=== PATIENT | male | born 1940 | race Caucasian/White ===

== ENCOUNTER → 2020-03-02 08:15 | Outpatient (REF) | payer MEDICARE, SELFPAY | LOC: ANHLAB 08:15 | PROVIDERS: PCP Family Medicine; Visit Provider Nurse Practitioner | DX: C44.612 Basal cell carcinoma of skin of right upper limb, including shoulder (principal) | CPT/HCPCS: 88305; 88331 ==

== ENCOUNTER → 2020-09-15 10:53 | Outpatient (REF) | payer MEDICARE, SELFPAY | LOC: ANHLAB 10:53 | PROVIDERS: PCP Family Medicine; Visit Provider Nurse Practitioner | DX: C44.319 Basal cell carcinoma of skin of other parts of face (principal) | CPT/HCPCS: 88305 ==

== ENCOUNTER → 2020-11-16 09:13 | Outpatient (REF) | payer MEDICARE, SELFPAY | LOC: ANHLAB 09:13 | PROVIDERS: PCP Family Medicine; Visit Provider Nurse Practitioner | DX: C44.319 Basal cell carcinoma of skin of other parts of face (principal) | CPT/HCPCS: 88305; 88331 ==

== ENCOUNTER → 2021-02-16 10:34 | Outpatient (CLI) | payer MEDICARE, SELFPAY ==
--- NOTE | ~2021-02-16 | XR_ITS ---
EXAMINATION: XR hand LT min 3V EXAM DATE: 02/16/2021 11:15 INDICATION: Pain in bilateral 1st MP joints. TECHNIQUE: Left hand frontal, lateral and oblique projections obtained and reviewed. Comparison is ma joselyn to prior examination from 02/18/2016. FINDINGS: Left metacarpal bones are unremarkable. There is severe 1st carpometacarpal, moderate josé caphe primary osteoarthritis. Otherwise mild polyarticular and and wrist primary osteoarthritis. Ther e are no bony erosions identified. There are no acute fractures or dislocations identified. There is no subcutaneous gas. The soft tissue is unremarkable. There are no radiopaque foreign bodies. 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 Reviewed, dictated and finalized at location B. 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
--- NOTE | ~2021-02-16 | XR_ITS ---
EXAMINATION: XR hand RT min 3V EXAM DATE: 02/16/2021 11:15 INDICATION: Pain in bilateral 1st MP joints . Rt 4th digit stiffness, wont straighten x 1yr. bilateral 1st digit mcp joint pain x 10 yrs. TECHNIQUE: Right hand frontal, lateral and oblique projections obtained and reviewed. Comparison is m saadia to prior examination from 02/18/2016. FINDINGS: Right metacarpal bones are unremarkable. There is severe 1st carpometacarpal joint primar y osteoarthritis. Otherwise mild to moderate polyarticular metacarpophalangeal and interphalangeal p rimary osteoarthritis. There are no acute fractures or dislocations identified. There is no subcutan eous gas. The soft tissue is unremarkable. There are no radiopaque foreign bodies. IMPRESSION: Right hand polyarticular arthritis, severe at the 1st carpometacarpal joint. Reviewed, dictated and finalized at location B. IMPRESSION: Right hand polyarticular arthritis, severe at the 1st carpometacarp al joint.
== END ==
PROVIDERS: Visit Provider Plastic Surgery
DX: M19.041 Primary osteoarthritis, right hand (principal); M19.042 Primary osteoarthritis, left hand
CPT/HCPCS: 73130

== ENCOUNTER → 2022-03-09 13:07 | Outpatient (CLI) | payer MEDICARE, SELFPAY ==
--- NOTE | ~2022-03-09 | MR_ITS ---
EXAMINATION: MR hip LT wo con DATE: 03/09/2022 14:17 INDICATION: Left hip pain TECHNIQUE: Magnetic resonance imaging (MRI) of the left hip was performed without intravenous contra st. Sequences included full-field axial PD-weighted FS FSE and T1-weighted FSE, coronal of the pelvis with PD-weighted FS FSE, small field of view of the left hip with axial PD-weighted FS FSE, sagitta l PD-weighted FS FSE and coronal PD weighted FS FSE. Additional radial T1-weighted FGR oriented ortho gonal to the acetabular rim were obtained for evaluation of the labrum. COMPARISON: Left hip radiographs dated 12/30/2021 FINDINGS: Bones/labrum/cartilage: Alignment is normal. No fracture, avascular necrosis or pathologic marrow replacing process. Mild le ft hip osteoarthritis with mild nonuniform joint space narrowing related to partial thickness cartila ge loss most prominent posteriorly without degenerative subchondral changes. Diffuse degenerative tea ring of the left acetabular labrum. Large para labral cyst extending approximately 7 cm AP along the rim of the left acetabulum along the deep margin of the reflected head of the proximal left rectus fe rachana tendon. The cyst measures up to 6 x 9 mm in maximal orthogonal dimensions. Severe lumbosacral s pondylosis. Fluid: Symmetric physiologic amount of fluid within both hip joints. Soft tissues: Normal and symmetric muscle bulk and signal in the pelvis and visualized proximal thighs. The iliopso as, gluteal and proximal hamstring tendons are normal. Prostatomegaly measuring 5.2 x 4.6 x 4.4 cm. T here is 4.5 x 3.6 x 3.7 cm exophytic mass arising from prostate which projects into the lumen at the base of the bladder. Mildly trabeculated mucosal surface to the bladder consistent with likely chroni c outlet obstruction. Limited evaluation of visceral organs of the pelvis is otherwise unremarkable. No pathologically enlarged pelvic/inguinal lymphadenopathy. Small bilateral fat-containing inguinal hernias. IMPRESSION: 1. Mild left hip osteoarthritis with diffuse degenerative tearing of the labrum with large paraverteb ral cyst extending along the rim of the acetabulum. 2. Prostatomegaly with 4.5 cm exophytic prostate mass which projects into the lumen of the bladder. 2. Small bilateral fat-containing inguinal hernias. 4. Severe lumbosacral spondylosis. Reviewed, dictated and finalized at location B. IMPRESSION: 1. Mild left hip osteoarthritis with diffuse degenerative tearing of the labrum with large paravertebral cyst extending along the rim of the acetabulum. 2. Prostatomegaly with 4.5 cm exophytic prostate mass which projects into the l umen of the bladder. 2. Small bilateral fat-containing inguinal hernias. 4. Severe lumbosacral spondylosis.
== END ==
PROVIDERS: PCP Family Medicine; Visit Provider Nurse Practitioner Family
DX: M47.896 Other spondylosis, lumbar region (principal); K40.90 Unilateral inguinal hernia, without obstruction or gangrene, not specified as recurrent; M16.12 Unilateral primary osteoarthritis, left hip
CPT/HCPCS: 73721

== ENCOUNTER 2022-05-29 08:11 | Emergency (ER) | payer MEDICARE, SELFPAY ==
--- NOTE | ~2022-05-29 | XR_ITS ---
EXAMINATION: XR tibia fibula RT 2V INDICATION: Right leg pain TECHNIQUE: Two views of the right tibia and fibula are obtained on four radiographs. COMPARISON: None available FINDINGS: Bone alignment is normal. There is no fracture. The soft tissues are unremarkable. There is mild osteoarthritis of the knee. Calcified atherosclerosis is noted. Surgical clips are seen posteri or to the distal femur. Posterior and plantar calcaneal enthesophytes are noted. IMPRESSION: 1. No acute osseous abnormality. Reviewed, dictated and finalized at location A.
[2022-05-29 08:18] VITALS: BP 155/72; PULSE 56; RESP 18; TEMP 36.5; O2SAT 97
--- NOTE | 2022-05-29 08:32 | ED.FALL ---
HPI - Fall General Chief Complaint: Fall Stated Complaint: fell out of bed Time Seen by Provider: 05/29/22 08:32 Source: patient Mode of arrival: ambulatory Limitations: no limitations History of Present Illness HPI Narrative: 82 years old white male presents with pain at the right calf muscles after possible hitting bedside table this morning. Seem like patient had a fall while trying to get out of bed, does not remember exactly. Patient had similar symptoms in the past. Patient is telling me that he is on Plavix and Coumadin. He denies any other injuries, he denies any head pain, neck pain chest pain or back pain. Also denies any leg pain prior this morning. Related Data Home Medications Medication Instructions Recorded Confirmed lisinopril 1 mg/mL oral solution 2.5 mg PO DAILY 10/07/19 12/20/21 rosuvastatin 5 mg tablet (Crestor) 5 mg PO DAILY 10/07/19 12/20/21 tamsulosin 0.4 mg capsule (Flomax) 0.4 mg PO DAILY 10/07/19 12/20/21 atorvastatin 40 mg tablet 40 mg PO DAILY 12/07/21 12/20/21 clopidogrel 75 mg tablet 75 mg PO DAILY 12/07/21 12/20/21 magnesium 250 mg tablet 250 mg PO DAILY 12/07/21 12/20/21 zinc 50 mg tablet 50 mg PO DAILY 12/07/21 12/20/21 Allergies Allergy/AdvReac Type Severity Reaction Status Date / Time No Known Allergies Allergy Verified 05/29/22 08:26 Review of Systems Review of Systems: All systems reviewed & are unremarkable except as noted in HPI and below PMFSH Past Medical History Medical History Aorta aneurysm Hernia High cholesterol History of stress test Hyperlipidemia Hypertension Surgical History Surgical History H/O vein stripping Family History Family History Mother Heart disease Social History Social History Smoking status: Former smoker Alcohol intake: never Substance use: never Substance use type: does not use Exam Narrative: General appearance: Well-developed, well-nourished Skin: Normal color Head: Normocephalic, nontraumatic Neck: Supple, nontender Vascular: Normal peripheral pulses, normal capillary refill. Musculoskeletal: Right lower leg showed diffuse tenderness posteriorly, slightly swollen and the film. 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 as tested, no gross motor deficit Course Vital Signs Vital signs: Vital Signs Temperature 36.5 C 05/29/22 08:18 Pulse Rate 56 L 05/29/22 08:18 Respiratory Rate 18 05/29/22 08:18 Blood Pressure 155/72 H 05/29/22 08:18 Pulse Oximetry 97 05/29/22 08:18 Oxygen Delivery Room Air 05/29/22 08:18 Temperature 36.5 C 05/29/22 08:18 Pulse Rate 56 L 05/29/22 08:18 Respiratory Rate 18 05/29/22 08:18 Blood Pressure 155/72 H 05/29/22 08:18 Pulse Oximetry 97 05/29/22 08:18 Oxygen Delivery Room Air 05/29/22 08:18 MDM - Fall Imaging Data Radiologist's impression: Impressions Tibia/Fibula X-Ray 05/29/22 09:01 IMPRESSION: 1. No acute osseous abnormality. Critical Care Time Critical Care Time Critical Care Time: No Discharge Plan Discharge Clinical Impression: Contusion of leg, right Patient Disposition: Home, Self-Care Condition: Stable Instructions: Antibiotic Form Additional Instructions: Discharge instructions, ice pack 20 minutes/h for the next 24 hours, keep leg elevated, Tylenol as needed Prescriptions: New tramadol 50 mg tablet 50 mg PO Q6H PRN (Reason: pain) Qty: 20 0RF No Action tamsulosin [Flomax] 0.4 mg
[2022-05-29] MEDS: traMADol HCL (*CRX) 50 MG TABLET PO (08:49)
[2022-05-29 09:47] VITALS: BP 148/62; PULSE 54; RESP 16; O2SAT 95
[2022-05-29 10:27] VITALS: BP 150/54; PULSE 55; RESP 17; O2SAT 15
--- NOTE | 2022-05-29 10:57 | PC.NURSE ---
pt states that he is taking Coumadin. after pt was discharged Dr. Sinclair states Coumadin is not on pt's medication list and to call pt back to be sure pt is taking it. When calling pt's Son he states after looking at the medication list the pt is taking Clopidogrel not Coumadin. Dr. Sinclair states pt needs to come back to be evaluated for possible DVT. Called Son back to notify them they need to return to the ER for an ultrasound to rule out a DVT. Son verbalized understanding and states they will return to be evaluated.
== END 2022-05-29 10:30 | disposition home or self-care (01) ==
PROVIDERS: Emergency Provider Emergency Medicine; PCP Family Medicine
DX: S80.11XA Contusion of right lower leg, initial encounter (principal); E78.5 Hyperlipidemia, unspecified; I10 Essential (primary) hypertension; Z87.891 Personal history of nicotine dependence; Z79.02 Long term (current) use of antithrombotics/antiplatelets; Z79.01 Long term (current) use of anticoagulants; W06.XXXA Fall from bed, initial encounter
CPT/HCPCS: 73590; 99283; A9270

== ENCOUNTER 2022-05-29 11:36 | Emergency (ER) | payer MEDICARE, SELFPAY ==
--- NOTE | ~2022-05-29 | US_ITS ---
EXAMINATION: US venous doppler LE RT DATE: 05/29/2022 12:20 INDICATION: Right lower limb swelling TECHNIQUE: Gilmore scale images without and with compression and Doppler images of the right lower extre mity veins were obtained. COMPARISON: None FINDINGS: The right common femoral vein, profunda femoral vein, femoral vein, popliteal vein, peronea l trunk, posterior tibial veins, and greater saphenous vein are patent. The bypass graft appears to b e patent as well. IMPRESSION: 1. Patent right lower extremity veins. No evidence of deep venous thrombosis. Reviewed, dictated and finalized at location A.
[2022-05-29 11:43] VITALS: BP 153/71; PULSE 60; RESP 18; O2SAT 97
--- NOTE | 2022-05-29 12:21 | ED.LOWEXIN ---
HPI - Extremity Injury (Lower) General Chief Complaint: Extremity Injury, Lower Stated Complaint: check for blood clot Source: patient and family Mode of arrival: ambulatory Limitations: no limitations History of Present Illness HPI Narrative: 82 years old white male was seen by me earlier today with a pain at the right calf muscle secondary to falling out of bed and kicking the leg against bedside table. On exam the leg is swollen, diffusely tender, no ecchymosis externally. Contusion, hematoma was my suspicions at that time especially patient told me that he is on Plavix and Coumadin. Right tibia and fib x-ray showed no acute abnormality. After patient got discharged, I found out that patient Coumadin is not listed in his medicine list, I called his son to confirm that patient is on Coumadin and the response was no. Patient was advised to come back to the emergency room to rule out the possibility of deep vein thrombosis which probably been going over the last few days but got worse this morning and patient probably blaming possible fall out of bed causing his symptoms. Patient denies any fever, chills, nausea, vomiting, chest pain or shortness of breath. Related Data Home Medications Medication Instructions Recorded Confirmed lisinopril 1 mg/mL oral solution 2.5 mg PO DAILY 10/07/19 12/20/21 rosuvastatin 5 mg tablet (Crestor) 5 mg PO DAILY 10/07/19 12/20/21 tamsulosin 0.4 mg capsule (Flomax) 0.4 mg PO DAILY 10/07/19 12/20/21 atorvastatin 40 mg tablet 40 mg PO DAILY 12/07/21 12/20/21 clopidogrel 75 mg tablet 75 mg PO DAILY 12/07/21 12/20/21 magnesium 250 mg tablet 250 mg PO DAILY 12/07/21 12/20/21 zinc 50 mg tablet 50 mg PO DAILY 12/07/21 12/20/21 Allergies Allergy/AdvReac Type Severity Reaction Status Date / Time No Known Allergies Allergy Verified 05/29/22 08:26 Review of Systems Review of Systems: All systems reviewed & are unremarkable except as noted in HPI and below PMFSH Past Medical History Medical History Aorta aneurysm Hernia High cholesterol History of stress test Hyperlipidemia Hypertension Surgical History Surgical History H/O vein stripping Family History Family History Mother Heart disease Social History Social History Smoking status: Former smoker Alcohol intake: never Substance use: never Substance use type: does not use Exam Narrative: General appearance: Well-developed, well-nourished Skin: Normal color Head: Normocephalic, nontraumatic Eyes: Clear conjunctiva ENT: Oropharynx normal, ears normal, nose normal Neck: Supple, nontender Chest and respiratory: Airway patent, no respiratory distress, no accessory muscle use Heart: Regular rate/rhythm Abdomen: Soft, nontender, no organomegaly, quiet bowel sounds Vascular: Normal peripheral pulses, normal capillary refill. Musculoskeletal: Diffuse tenderness at the right calf muscles, firm, tight and swollen. 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
== END 2022-05-29 12:48 | disposition home or self-care (01) ==
PROVIDERS: Emergency Provider Emergency Medicine; PCP Family Medicine
DX: M79.661 Pain in right lower leg (principal); E78.5 Hyperlipidemia, unspecified; I10 Essential (primary) hypertension; Z87.891 Personal history of nicotine dependence
CPT/HCPCS: 73590; 93971; 99284; A9270

== ENCOUNTER 2022-07-19 13:00 | Outpatient (NON) | payer MEDICARE, SELFPAY | END 2022-07-19 13:01 | disposition home or self-care (01) | LOC: ANHLAB 07-22 07:49 | PROVIDERS: PCP Family Medicine; Visit Provider Nurse Practitioner | DX: C44.319 Basal cell carcinoma of skin of other parts of face (principal) | CPT/HCPCS: 88305 ==

== ENCOUNTER 2022-08-08 16:50 | Outpatient (NON) | payer MEDICARE, SELFPAY | END 2022-08-08 16:51 | disposition home or self-care (01) | LOC: ANHLAB 16:51 | PROVIDERS: PCP Family Medicine; Referring Provider Nurse Practitioner; Visit Provider Nurse Practitioner | DX: C44.319 Basal cell carcinoma of skin of other parts of face (principal) | CPT/HCPCS: 88305; 88331 ==

== ENCOUNTER 2022-12-27 08:14 | Outpatient (CLI) | payer MEDICARE, SELFPAY ==
[2022-12-27 19:23] LABS: Basophils Absolute Auto 0.1 K/mm3 (0.0-0.1); Basophils Percent Auto 0.7 % (0.2-1.2); Eosinophils Absolute Auto 0.3 K/mm3 (0-0.3); Eosinophils Percent Auto 3.7 % (0-4.4); Hematocrit 43.2 % (42.0-52.0); Hemoglobin 14.2 g/dL (14.0-18.0); Immature Granulocyte Absolute 0.02 K/mm3 (0.00-0.031); Immature Granulocyte Percent A 0.3 % (0-0.5); Lymphocytes Absolute Auto 1.19 K/mm3 (0.9-3.2); Lymphocytes Percent Auto 16.4 % (18.3-44.2); Mean Corpuscular HGB Conc 32.9 g/dl (32-36); Mean Corpuscular Hemoglobin 31.2 pg (26-34); Mean Corpuscular Volume 94.9 fl (80-100); Mean Platelet Volume 11.9 fl (7.4-10.4); Monocytes Absolute Auto 0.7 K/mm3 (0.1-0.6); Monocytes Percent Auto 10.2 % (2.6-8.5); Neutrophils Percent Auto 68.7 % (45.5-73.1); Platelet Count Result 166 k/mm3 (150-375); Red Blood Count 4.55 M/mm3 (4.6-6.20); Red Cell Distribution Width 14.4 % (11.5-14.5); White Blood Count 7.3 K/mm3 (4.5-10.0)
[2022-12-27 19:37] LABS: Potassium 4.3 mmol/L (3.4-5.0)
[2022-12-27 19:50] LABS: LDL Cholesterol Direct 88 mg/dL
[2022-12-27 19:59] LABS: Alanine Aminotransferase 27 U/L (6-50); Albumin Level 4.4 g/dL (3.5-5.1); Alkaline Phosphatase 91 U/L (38-126); Anion Gap 7 mmol/L (8-16); Aspartate Amino Transferase 51 U/L (17-59); Bilirubin,Total 0.7 mg/dL (0.2-1.3); Blood Urea Nitrogen 24 mg/dL (9-20); Calcium 9.1 mg/dL (8.4-10.2); Carbon Dioxide 28 mmol/L (22-30); Chloride 104 mmol/L (98-107); Cholesterol 165 mg/dL (0-200); Estimated Glomerular Filt Rate > 60; Glucose 82 mg/dL (65-110); HDL Direct 40 mg/dL; Sodium 139 mmol/L (137-145); Triglycerides 125 mg/dL (<150)
[2023-01-01 14:01] LABS: Vitamin B6 17.9 ng/mL (2.1-21.7)
== END 2022-12-27 08:15 | disposition home or self-care (01) ==
LOC: ANHGOSHLAB 08:17
PROVIDERS: PCP Emergency Medicine; Visit Provider Emergency Medicine
DX: C44.319 Basal cell carcinoma of skin of other parts of face (principal); G57.93 Unspecified mononeuropathy of bilateral lower limbs; I10 Essential (primary) hypertension; F51.5 Nightmare disorder
CPT/HCPCS: 36415; 80053; 80061; 82607; 82746; 84207; 84443; 85025

== ENCOUNTER 2023-07-25 11:00 | Outpatient (RCR) | payer MEDICARE, SELFPAY ==
--- NOTE | 2023-07-04 12:24 | STOPEVAL1 ---
Assessment and note entered by Raquel Neil, ELECTRONIC EQUIPMENT REPAIRER Evaluation Information Assessment Status Evaluation Diagnosis Dysarthria/Anarthria Subjective Information Patient reports that his can't understand what he is saying, however he believes that she needs hearing aids. Patient reports that his physician can understand him. He did admit that other family members usually can understand him, but occasionally have to ask him to repeat. He stated that my oldest daughter thinks I talk too fast. Patient also admitted that co-workers in the past would have to have him repeat. When asked what triggered him to come to Speech Therapy, he said his did, that she has to make him repeat himself frequently. He denies any neurological diagnosis that would lend itself to a speech/voice issue. Reported Pain Level Pain Score 0: Self Report Assessment ST Clinical Summary SPEECH/VOICE EVALUATION Patient was seen for a Speech and Voice Evaluation at the request of his physician. He reports that he feels his voice has always sounded the same his whole life but reports that his is complaining at this time that she cannot hear/ understand him. Additionally, patient reports that his daughter is telling him that he talks too fast and she cannot understand him at times. He reports this is an [id number] issue, that over the years, many people have expressed they cannot hear or understand him. In spite of this admission, patient stated several times that he feels his has a hearing acuity issue and the problem is with her, not with him. Today the patient was given portions of both a dysarthria and voice assessment. He exhibited the following issues: patient's voice appears to be muffled, not hoarse or harsh and no diplophonia was noted. Vocal loudness was louder than expected for normal conversation (77-79 decibels; normal loudness for this room ranges from 68-74 decibels). When therapist asked if patient was possibly over-compensating for his muffled voicing, he agreed that he does seem to have to press his voice to achieve normal loudness. On the dysarthria as
--- NOTE | 2023-07-26 14:17 | STOPDC ---
Assessment and note entered by Raquel Neil, TACK PICKER Reported Pain Level Pain Score 0: Self Report Assessment ST Clinical Summary DISCHARGE SUMMARY Patient was seen for an initial evaluation for Speech and Voice on 07/04/23. Patient exhibited mild lingual weakness and reduced ability to sustain voiced sounds indicating a possible issue with breath control for speech. Voice was judged to be muffled yet decibel levels when speaking were found to be higher than expected for normal conversation indicating patient may be over- exerting in order to achieve a normal to slightly higher vocal loudness. Therapy focused on maintaining breath control while speaking, and also on producing lingual sounds with increased precision. Patient performed well during therapy tasks and completed exercises and speech tasks at home in between sessions. At time of discharge patient met all goals concerning breath support, vocal loudness, and lingual/speech sound precision. He continues to report that his says she cannot hear him yet he reports she needs hearing aids and also is always looking at her phone rather than at him, which decreases her ability to hear and to catch what he is saying. Therapist reminded patient to get her attention before speaking and make sure they are making eye contact when conversing. Do not expect her to hear or pay attention when she is engrossed in another activity, across the room, or back to back. He voiced understanding of recommendations. Patient is being discharged this date with goals achieved. Plan of Care ST Services Indicated Yes
== END 2023-09-18 10:50 | disposition home or self-care (01) ==
LOC: ANHST 11:00
PROVIDERS: PCP Emergency Medicine; Visit Provider Emergency Medicine
DX: R47.1 Dysarthria and anarthria (principal)
CPT/HCPCS: 92507; 92522; 92524

== ENCOUNTER 2024-08-08 09:17 | Outpatient (CLI) | payer MEDICARE, SELFPAY ==
[2024-08-08 09:47] LABS: Hematocrit 44.2 % (42.0-52.0); Hemoglobin 15.2 g/dL (14.0-18.0); Mean Corpuscular HGB Conc 34.4 g/dl (32-36); Mean Corpuscular Hemoglobin 32.2 pg (26-34); Mean Corpuscular Volume 93.6 fl (80-100); Mean Platelet Volume 11.1 fl (7.4-10.4); Platelet Count Result 169 k/mm3 (150-375); Red Blood Count 4.72 M/mm3 (4.6-6.20); Red Cell Distribution Width 13.8 % (11.5-14.5); White Blood Count 7.2 K/mm3 (4.5-10.0)
[2024-08-08 09:56] LABS: Alanine Aminotransferase 25 U/L (6-50); Albumin Level 4.9 g/dL (3.5-5.1); Alkaline Phosphatase 76 U/L (38-126); Anion Gap 8 mmol/L (4-12); Aspartate Amino Transferase 28 U/L (17-59); Bilirubin,Total 1.1 mg/dL (0.2-1.3); Blood Urea Nitrogen 22 mg/dL (9-20); Calcium 9.9 mg/dL (8.4-10.2); Carbon Dioxide 29 mmol/L (22-30); Chloride 101 mmol/L (98-107); Estimated Glomerular Filt Rate 57; Glucose 96 mg/dL (65-110); Potassium 4.3 mmol/L (3.4-5.0); Sodium 138 mmol/L (137-145)
== END 2024-08-08 09:18 | disposition home or self-care (01) ==
LOC: ANHLAB 09:21
PROVIDERS: PCP Nurse Practitioner Family; Visit Provider Nurse Practitioner Family
DX: Z79.899 Other long term (current) drug therapy (principal); Z76.89 Persons encountering health services in other specified circumstances
CPT/HCPCS: 36415; 80053; 85027

== ENCOUNTER 2025-01-20 09:25 | Emergency (ER) | payer MEDICARE, SELFPAY ==
--- NOTE | 2025-01-20 09:26 | ED_ITS ---
HPI - URI/Sore Throat General Chief Complaint: Ear Stated Complaint: cold symptoms Time Seen by Provider: 01/20/25 09:26 Source: patient Mode of arrival: ambulatory Limitations: no limitations History of Present Illness HPI Narrative: patient is an 84-year-old male that presents with 3 days of congestion, sore throat cough. Patient reports cough is dry but has worsened in intensity. In patient reports sore throat 03/25. Has not taken anything for symptoms. Former smoker. Denies any fever, chills, nausea, vomiting, diarrhea. Related Data Home Medications ?Medication ?Instructions ?Recorded ?Confirmed ?Last Taken ?Type clopidogrel 75 mg tablet 75 mg PO DAILY 12/07/21 08/07/24 Unknown History magnesium 250 mg tablet 250 mg PO DAILY 12/07/21 08/07/24 Unknown History cholecalciferol (vitamin D3) 25 25 mcg PO DAILY 10/06/22 08/07/24 Unknown History mcg (1,000 unit) capsule (Vitamin D3) finasteride 5 mg tablet 5 mg PO DAILY 10/06/22 08/07/24 Unknown History vitamin B complex (B 1 tablet PO DAILY 10/06/22 08/07/24 Unknown History Complex-Vitamin B12 tablet) Allergies Allergy/AdvReac Type Severity Reaction Status Date / Time No Known Allergies Allergy Verified 01/20/25 09:50 Review of Systems Review of Systems: All systems reviewed & are unremarkable except as noted in HPI and below Constitutional: Constitutional: Denies chills, Denies fatigue, Denies fever(s), Denies headache(s), Denies malaise and Denies weakness Eyes: Eyes: Denies blurry vision, Denies itchy eyes and Denies loss of vision ENT: Denies otalgia, Denies headache(s), Reports nasal congestion, Denies sinus pain and Reports sore throat Cardiovascular: Cardiovascular: Denies chest pain, Denies irregular heart rhythm and Denies dyspnea Respiratory: Respiratory: Reports cough and Denies dyspnea Gastrointestinal: Gastrointestinal: Denies abdominal pain, Denies diarrhea, Denies nausea and Denies vomiting Musculoskeletal: Musculoskeletal: Denies back pain, Denies myalgias and Denies arthralgias Integumentary/Breasts: Skin/Breast: Denies pruritus and Denies rash Neurologic: Denies headache(s), Denies loss of vision and Denies weakness Psychiatric: Psychiatric: Reports no additional psychiatric complaints Endocrine: Endocrine: Denies fatigue Allergic/Immunologic: Allergic/Immunologic: Denies itchy eyes PMFSH Past Medical History 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 History of stress test Aorta aneurysm Hernia Hypertension High cholesterol Surgical History Surgical History H/O vein stripping Family History Family History Mother Heart disease Social History Social History Smoking status: Former smoker Alcohol intake: never Substance use: never Substance use type: does not use Lack of Transportation: No Lack of Food: Never True Current Housing: I Have Housing Concerned About Future Housing: No Difficulty Paying Gas/Electric Bills: No Difficulty Paying for Meds: No Currently Unemployed: No Comments At time of signature, agree with nursing past medical, surgical, social and family history. There is no relevant family history pertinent to the presenting complaint. Exam Const: General: cooperative, healthy appearing, comfortable, no acute distress and well nourished Nutritional Appearance: well nourished Orientation/consciousness: patient oriented x3 Limitations: no limitations HENMT: Head: normal to inspection, normocephalic and atraumatic Ears: hearing grossly normal bilaterally, external ears normal, EAC's normal, no periauricular adenopathy and TM abnormal obstructed by cerumen bilateral Face/Nose/Sinus: Normal external nose present, Abnormal mucous membranes and turbinates present erythematous bilateral and diffuse, normal facial exam, sinuses nontender and face symmetric Face and sinus: normal facial exam, sinuses nontender and face symmetric Mouth: Yes Normal oral and palatal mucosa present, Yes lip normal, Yes tongue normal, Yes Normal salivary glands and ducts present, Yes oropharynx normal and Yes moist mucous membranes Teeth and gingiva: dentition normal Throat: posterior oropharynx normal, tonsils normal and uvula midline Eyes: General: appearance normal, both eyes and all related structures Alignment and Position: alignment normal and position normal Periorbital: periorbital findings normal Eyelids: eyelids normal Pupils: Equal, round and reactive pupils present Neck: Neck: normal visual inspection, full ROM, no lymphadenopathy and supple Chest: Chest palpation & inspection: normal inspection of the chest and normal palpation of entire chest wall Resp: Effort & Inspection: normal respiratory effort and able to speak in complete sentences Auscultation: clear to auscultation bilaterally, no crackles, no rales, no rhonchi and no wheezes Cardio: Rate: regular rate Rhythm: regular rhythm Heart sounds: S1 normal heart sound present and S2 normal heart sound present GI: Inspection: normal to inspection Skin: General skin exam: normal color and no rashes or lesions noted Neuro: General: patient oriented x3 and moves all extremities Cranial nerves: Yes Equal, round and reactive pupils present Speech: normal speech Gait exam (Neuro): Normal gait present Extrem: General: normal to inspection, full ROM and no edema Psych: Appearance: grossly normal and well kempt Mental Status: mental status grossly normal Speech and movement: Normal speech and movement present Affect: normal affect Attitude: cooperative Thought process: Normal thought process present Course Course Emergency Course: Discharge instructions reviewed with patient, as well as provided in writing per nursing staff. The instructions also include specific and strict return/GO TO THE ER as well as f/u information. All questions have been answered, and the patient deny any further questions with discharge and discharge plan. Portions of this record may have been created with voice recognition software Level of Care: Express Care Visit Vital Signs Vital signs: Vital Signs Temperature 37.3 C 01/20/25 09:36 Pulse Rate 83 01/20/25 09:36 Respiratory Rate 18 01/20/25 09:36 Blood Pressure 154/72 H 01/20/25 09:36 Pulse Oximetry 100 01/20/25 09:36 Oxygen Delivery Room Air 01/20/25 09:36 Temperature 37.3 C 01/20/25 09:36 Pulse Rate 83 01/20/25 09:36 Respiratory Rate 18 01/20/25 09:36 Blood Pressure 154/72 H 01/20/25 09:36 Pulse Oximetry 100 01/20/25 09:36 Oxygen Delivery Room Air 01/20/25 09:36 Reviewed Procedures Ear Wax Removal Both Ears: Ear Wax Removal Date: 01/20/25 Ear Wax Removal Time: 10:00 Cerumenolytic Used: other (1:1 water and hydrogen peroxide) Results: Re-examined: cerumen removed completely TM Examination: TM(s) intact, normal appearance Ear Canal Exam: atraumatic Patient Tolerated Procedure: well and no complications Complications: no problems Technique: ear canal irrigated and ear canal curetted Additional Comments: procedure explained to patient. Verbal consent obtained. Successful removal of cerumen. Reports immediate relief. MDM - URI/Sore Throat MDM Narrative Medical decision making narrative: Patient has significant past medical history along with being a former smoker. Negative for covid and flu Will treat with antibiotics, Medrol Dosepak and Tessalon Perles for cough. Patient requested cerumen impactions be removed. S uccessful removal with immediate relief. Pt well hydrated appearing, in no respiratory distress, hemodynamically stable. Recommend supportive care. The patient is stable at time of discharge the cli nical impression was discussed and the patient was given the opportunity to ask questions, which were addressed as completely as possible given the information available at present. Anticipatory guidance and return to care precautions were discussed and the importance of primary care follow-up was stressed and encouraged. The patient voiced understanding of the plan, indications to return, and the need for follow-up. Differential diagnosis considered: Bronchitis, Benavidez virus, strep pharyngitis, allergic rhinitis, upper respiratory tract infection, sinusitis, rhinosinusitis, nasopharyngitis. viral pharyngitis, otitis media, otitis externa, otitis effusion, foreign body, cerumen impaction, viral syndrome, and influenza.? Exam findings show no acute concerns or changes; patient is non-toxic appearing and is in no distress.? Patient is appropriate for outpatient treatment and follow- up.? Medical Records Attestation: I reviewed the patient's medical records. Lab Data Attestation: I reviewed the patient's lab results. Labs: Lab Results 01/20/25 Range/Units 10:19 POC Influenza A Ag Negative (Negative) POC Influenza B Ag Negative (Negative) POC SARS CoV-2 Ag Negative (Negative) Discharge Plan Discharge Clinical Impression: Upper respiratory infection with cough and congestion Cerumen impaction Qualifiers: Laterality: bilateral Qualified Code(s): H61.23 - Impacted cerumen, bilateral Patient Disposition: Home Condition: Stable Instructions: Upper Respiratory Infection (ED) Additional Instructions: Take antibiotic as prescribed. Take steroids Per package instructions. Use Tessalon Perles as needed for cough. You were negative for COVID and FLU Other symptomatic treatments include: -Alternate Tylenol and Motrin per package directions for fever or pain: Tylenol 650-1000mg by mouth every 4-6 hours. Do not exceed 4000mg in 24 hours. Advil (Ibuprofen) 600 mg by mouth every 6 hours. Do not exceed 2400mg in 24 hours. 8 AM: Tylenol 11 AM: Ibuprofen 2 PM: Tylenol 5 PM: Ibuprofen 8 PM: Tylenol 11 PM: Ibuprofen 2 AM: Tylenol 5 AM: Ibuprofen -Antihistamine medication such as Benadryl at night and Zyrtec/Claritin/Margie during the day can help improve symptoms. -Use Flonase twice a day for 5 days then daily to help reduce the inflammation and dry up your sinuses. -You can also use Sudafed or Mucinex. Be sure to drink plenty of water with these medications at least 8 ounces with every dose and it is important to drink 8 to 10 glasses of water per day. Water is a natural decongestant -Eat and drink things that are easy to swallow, like tea or soup, or popsicles. -Oral rinses such as: Salt water gargles and/or may use topical anesthetic (eg. Chloraseptic spray) or lozenges to relieve dryness or throat pain). -Frequent hand washing or hand bullet swaging machine adjuster is one of the best ways to prevent spread of infection. -Using a vaporizer or humidifier at night will also help thin secretions and help with coughing up phlegm. Call your Primary Care Doctor and make a follow-up appointment in 3 days. If your cough worsens, you develop a fever greater than 103, you develop shaking chills, a fast heartbeat, trouble breathing and/or feel you are are breathing much faster than usual, call your Primary Care Doctor or go to the ER. Patient Language: Kenyan Prescriptions: New benzonatate 100 mg capsule 100 mg PO BID PRN (Reason: cough) Qty: 14 0RF doxycycline monohydrate 100 mg tablet 100 mg PO BID 7 Days Qty: 14 0RF methylprednisolone [Medrol (Yousuf)] 4 mg tablets,dose pack See Rx Instructions .ROUTE .COMPLEX Qty: 21 0RF Rx Instructions: orally per package directions No Action finasteride 5 mg tablet 5 mg PO DAILY vitamin B complex [B Complex-Vitamin B12] Tablet 1 tablet PO DAILY cholecalciferol (vitamin D3) [Vitamin D3] 25 mcg (1,000 unit) capsule 25 mcg PO DAILY clopidogrel 75 mg tablet 75 mg PO DAILY magnesium 250 mg tablet 250 mg PO DAILY efinaconazole 10 % solution with applicator 1 applic topical DAILY 336 Days Qty: 8 0RF lisinopril 10 mg tablet See Rx Instructions .ROUTE .COMPLEX Qty: 90 0RF Dose Instruction: TAKE 1 TABLET BY MOUTH EVERY DAY Rx Instructions: TAKE 1 TABLET BY MOUTH EVERY DAY atorvastatin 40 mg tablet 40 mg PO DAILY Qty: 90 1RF Follow-up/Referrals: Tereza Burgos APRN [Primary Care Provider] - 3 Days Time of Disposition: 10:14
[2025-01-20 09:36] VITALS: BP 154/72; PULSE 83; RESP 18; TEMP 37.3; O2SAT 100
[2025-01-20] MEDS: HYDROGEN PEROXIDE 3% SOLN(*SP) 473 ML BOTTLE 120 ML IRRIGATION (09:56)
--- OUTSIDE RECORDS SUMMARY | 2025-01-20 10:16 | XMS_ITS | Clinical Summary ---
Author Organization [facility] Address [address] [place] [id number] Care Team Providers Care Spool Hauler Name Role Phone Jase aDy MD Primary Care Provider [phone] Social History Tobacco Use Types Packs/Day Years Used Date Smoking Tobacco: Never Assessed Sex and Gender Information Value Date Recorded Sex Assigned at Not on file Legal Sex Male 11:42 AM CDT Gender Identity Not on file Sexual Orientation Not on file Plan of Treatment Health Maintenance Due Date Last Done Comments DTaP, Tdap and Td Vaccines (1 - Tdap) 1957 Zoster Vaccines (1 of 2) 02/21/1988 Annual Medicare Wellness Visit 2003 RSV Immunization or 60+ Years (1 - 1-dose 75+ series) 2013 COVID-19 Vaccine ( season) 2024 09/02/2022, 03/22/2022, 08/30/2021, Additional history exists Pneumococcal Vaccine: 65+ Years Completed 09/10/2018, 05/19/2011, 08/08/2005 Meningococcal B Vaccine Aged Out No l onger eligible based on patient's age to complete this topic Meningococcal Vaccine Aged Out No so dominik eligible based on patient's age to complete this topic RSV Immunizations Under 20 Months Aged Out No longer eligible based on patient's age to complete this topic Insurance MEDICARE [facility] Care Teams Spool Hauler Relationship Specialty Start Date End Date Jase Day MD [address] [place] [id number] PCP - General FAMILY PRACTICE 09/21/22
--- OUTSIDE RECORDS SUMMARY | 2025-01-20 10:16 | XMS_ITS | Clinical Summary ---
Author Organization [facility] [place] [address] Address [address] [place] [address] Care Team Providers Care Presto Log Operator Name Role Phone Tereza Burgos NP Primary Care Provider [phone] Allergies Active Allergy Reactions Criticality Noted Date Comments Cilostazol Headache Low 03/20/2018 Medications lisinopriL (PRINIVIL,ZESTR IL) 10 mg tablet Take 1 tablet (10 mg total) by mouth daily 8 Active atorvastatin (LIPITOR) 40 mg tablet Take 1 tablet (40 mg total) by mouth daily 8 Active cholecalciferol (VITAMIN D-3) 1,000 unit Take 1 tablet/capsule (1,000 Units total) by mouth daily Active magnesium 30 mg tablet Take 200 mg by mouth daily. Active ascorbic acid (VITAMIN C) 500 mg tablet,chewable Take 1 tablet/chew tab (500 mg total) by mouth daily Active vitamin B complex (B COMPLEX 1 ORAL) Rx: B Complex Active aspirin 81 mg enteric coated tablet TK 1 T PO D 3 9 Active clopidogreL (PLAVIX) 75 mg tablet TAKE ONE TABLET BY MOUTH DAILY 90 tablet 8 2 Active omeprazole (PriLOSEC) 20 mg capsule 2 Active tamsulosin (FLOMAX) 0.4 mg extended release capsule 2 Active donepeziL (ARICEPT) 5 mg tablet 2 Active finasteride (PROSCAR) 5 mg tablet 2 Active triamcinolone (KENALOG) 0.1 % ointment APPLY SMALL AMOUNT TOPICALLY TO THE AFFECTED AREA TWICE DAILY. DO NOT USE MORE THAN 2 WEEKS 2 Active zinc 50 mg tablet Take by mouth Active prazosin (MINIPRESS) 1 mg capsule TAKE 1 CAPSULE BY MOUTH EVERY DAY AT BEDTIME 3 Active Active Problems Problem Noted Date Diagnosed Date Aortic aneurysm 11/02/2023 Overview (11/02/2023): Aug 01, 2017 Entered By: BERNY OCHOA Comment: repaired 2010 Benign prostatic hyperplasia with urinary obstru ction 11/02/2023 Hearing loss 11/02/2023 Peripheral arterial occlusive disease 11/02/2023 Overview (11/02/2023): Jul 31, 2017 Entered By: BERNY OCHOA Comment: stents in legsDec 2016 Entered By: BERNY OCHOA Comment: claudication RLE 2016 - abnl BRADEN 09/2017 Assessment & Plan (11/20/2024 2:28 PM BLISTER PACKING MACHINE TENDER): Status post right fem-pop bypass graft 2018 denies any symptoms of claudication or ischemic rest pain. Continue aspirin and Plavix. Follow-up in 1 year with a lower extremity arterial duplex Sensorineural hearing loss, bilateral 11/02/2023 Other hyperlipidemia 09/06/2019 Assessment & Plan (10/05/2021 4:16 PM BLISTER PACKING MACHINE TENDER): Impression: Chronic stable hyperlipidemia, controlled medications. Plan: Medications reviewed, no changes made. Continue statin therapy as per primary care provider. Assessment & Plan (03/26/2021 1:31 PM CDT): Impression: Patient states his cholesterol is stable. Plan: Continue cholesterol management as per primary care provider. Hypertension 09/06/2019 Assessment & Plan (10/05/2021 4:16 PM BLISTER PACKING MACHINE TENDER): Impression: Chronic stable hypertension, controlled medications. Blood pressure stable this office visit. Plan: Medications reviewed, no changes made. Continue blood pressure management as per primary care provider. Assessment & Plan (03/26/2021 1:30 PM CDT): Impression: Blood pressure is noted to be elevated in the office. Plan: Advised patient to call primary care provider for further evaluation of elevated blood pressure. Mild mitral valve prolapse 05/14/2019 Non-rheumatic mitral regurgitation 11/01/2018 Abdominal aortic aneurysm without rupture 2017 Assessment & Plan (11/20/2024 2:29 PM BLISTER PACKING MACHINE TENDER): Aortobifemoral bypass graft for AAA 2009. Endograft remains patent per current duplex. Continue aspirin Plavix and statin therapy and follow up in 1 year for routine surveillance with aortic duplex Assessment & Plan (10/28/2022 10:43 AM BLISTER PACKING MACHINE TENDER): Patient is status post aortobifemoral bypass for AAA repair in 2009. He continues to do well after surgery. Denies any abdominal side or back pain no claudication with ambulation. Duplex today 10/27/2022 shows the graft is patent. Plan: Return in 1 year for routine surveillance with an aortic duplex. Assessment & Plan (10/05/2021 4:15 PM BLISTER PACKING MACHINE TENDER): Impression: Patient is status post aortobifemoral bypass graft in 2009. Bypass graft is patent is seen on abdominal arterial duplex with an elevated velocity of 165 to the left anastomosis. Patient has palpable bilateral femoral pulses and distal pulses. Plan: Recommend ongoing risk factor modifications. Patient to follow-up in 1 year for re-evaluation with abdominal arterial duplex. 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 Patient has bilateral biphasic waveforms distally. He denies any claudication or rest pain. The graft is patent on duplex 10/27/2022. Both lower extremities are warm with palpable distal pulses. Return in 1 year for routine surveillance with a lower extremity arterial duplex. Assessment & Plan (10/05/2021 4:16 PM BLISTER PACKING MACHINE TENDER): Impression: Patient is status post right femoral popliteal bypass graft on 01/02/2019. Right fem bypass graft is patent as seen on arterial duplex. Plan: Continue ongoing risk factor modifications. Patient to follow-up in 1 year with lower extremity arterial duplex. Assessment & Plan (03/26/2021 1:33 PM CDT): Impression: Patient reports he is feeling well since his last visit. He denies any claudication symptoms or rest pain at this time. No open wounds noted. Plan: Follow up in 6 months with arterial imaging. Senile ectropion of both lower eyelids 8 Encounters Date Type Department Care Team Description 11/20/2024 9:30 AM BLISTER PACKING MACHINE TENDER Office Visit [facility] [address] [place] [phone] Laurie Peters NP Secondary hypertension (Primary Dx); Other hyperlipidemia; Peripheral arterial occlusive disease 11/20/2024 Orders Only [facility] [address] [place] [phone] Keaton Kelley MD Aftercare following surgery of the circulatory system (Primary Dx) 11/12/2024 9:21 AM BLISTER PACKING MACHINE TENDER - 11/12/2024 11:59 PM BLISTER PACKING MACHINE TENDER Hospital Encounter [facility] [address] [place] [phone] Atherosclerosis of nondalton artery of both lower extremities with intermittent claudication Discharge Disposition: Discharge to home or self care 11/12/2024 9:20 AM BLISTER PACKING MACHINE TENDER - 11/12/2024 11:59 PM BLISTER PACKING MACHINE TENDER Hospital Encounter [facility] [address] [place] [phone] Atherosclerosis of nondalton artery of both lower extremities with intermittent claudication Discharge Disposition: Discharge to home or self care 11/12/2024 9:19 AM BLISTER PACKING MACHINE TENDER - 11/12/2024 11:59 PM BLISTER PACKING MACHINE TENDER Hospital Encounter [facility] [address] [place] [phone] Aneurysm of infrarenal abdominal aorta, unspecified whether ruptured Discharge Disposition: Discharge to home or self care 11/12/2024 Orders Only [facility] [address] [place] [phone] Keaton Kelley MD Atherosclerosis of nondalton artery of both lower extremities with intermittent claudication (Primary Dx) from Last 3 Months Immunizations Immunization Administration Dates Next Due Influenza, Trivalent, High D ose, Split, Preservative Free, Intramuscular 06/22/2018,07/25/2017 Influenza, Trivalent, IM (MDV) 08/06/2018 Influenza, Unspecified 07/25/2017 Pneumococcal Conjugate PCV 13 09/10/2018, 017 Pneumococcal Polysaccharide PPV23 05/19/2011, Surgical History Surgery Date Site/Laterality Comments VASECTOMY ABDOMINAL AORTIC ANEURYSM REPAIR AORTA - BILATERAL FEMORAL ARTERY BYPASS GRAFT HERNIA REPAIR VEIN SURGERY FEMORAL BYPASS 01/02/2019 Right Medical History Medical History Date Comments High cholesterol Hypertension AAA (abdominal aortic aneurysm) without rupture Atherosclerosis 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 with intermittent claudication Family History Medical History Relation Name Comments Heart disease Mother Beverly Heart disease Sister Siria Relation Name Status Comments Brother Alive Father (Age 97) Mother Beverly (Age 72) Sister Siria (Age 87) Social History Tobacco Use Types Packs/Day Years Used Date Smoking Tobacco: Former Cigarettes Smokeless Tobacco: Never Tobacco Cessation:Counseling Given: Not Answered Alcohol Use Standard Drinks/Week Comments No 0 (1 standard drink = 0.6 oz pur e alcohol) Sex and Gender Information Value Date Recorded Sex Assigned at Not on file Legal Sex Male 8:56 AM BLISTER PACKING MACHINE TENDER Gender Identity Male 10/04/2021 7:54 PM BLISTER PACKING MACHINE TENDER Sexual Orientation Straight 10/04/2021 7: 54 PM BLISTER PACKING MACHINE TENDER Obstetrics History Last Filed Vital Signs Vital Sign Reading Time Taken Comments Blood Pressure 159/74 11/20/2024 9:32 AM BLISTER PACKING MACHINE TENDER Pulse 74 11/20/2024 9:32 AM BLISTER PACKING MACHINE TENDER Temperature 36.8 C (98.3 F) 09/05/2019 2:28 PM BLISTER PACKING MACHINE TENDER Respiratory Rate - - Oxygen Saturation 95% 03/05/2024 10:30 AM CDT Inhaled Oxygen Concentration - - Weight 81.6 kg (180 lb) 11/20/2024 9:32 AM BLISTER PACKING MACHINE TENDER Height 177.8 cm (5' 10 ) 11/20/2024 9:32 AM BLISTER PACKING MACHINE TENDER Body Mass Index 25.83 11/20/2024 9:32 AM BLISTER PACKING MACHINE TENDER Plan of Treatment Health Maintenance Due Date Last Done Comments Depression Screening 1940 Fall Risk Assessment 1940 Hepatitis B Screening 02/21/1956 Zoster Vaccine (1 of 2) 02/21/1988 Well Visit 65+ 2003 Influenza Vaccine (Season Ended) 2025 08/06/2018, 06/22/2018, 07/25/2017, Additional history exists DTaP/Tdap/Td Vaccine (2 - Td or Tdap) 08/01/2027 08/01/2017 Pneumococcal vaccine 65+ Completed 018, 08/01/2017, 05/19/2011, Additional history exists Procedures Procedure Name Priority Date/Time Associated Diagnosis Comments US BRADEN Schedule Routine, Read Routine (OP Routine) 11/12/2024 10:59 AM BLISTER PACKING MACHINE TENDER Atherosclerosis of nondalton artery of both lower extremities with intermittent claudication US ARTERIAL DUPLEX LOWER EXTREMITY RIGHT LIMITED Schedule Routine, Read Routine (OP Routine) 11/12/2024 10:58 AM BLISTER PACKING MACHINE TENDER Atherosclerosis of nondalton artery of both lower extremities with intermittent claudication US DUPLEX SCAN OF AORTA: INFERIOR VENA CAVA, ILIAC, COMPLETE Schedule Routine, Read Routine (OP Routine) 11/12/2024 10:57 AM BLISTER PACKING MACHINE TENDER Aneurysm of infrarenal abdominal aorta, unspecified whether ruptured from Last 3 Months Results * US BRADEN (11/12/2024 10:59 AM BLISTER PACKING MACHINE TENDER) Anatomical Region Laterality Modality Vascular N/A Ultrasound 11/12/2024 Narrative 11/14/2024 11:20 AM BLISTER PACKING MACHINE TENDER [employer] Job ID: [id number] [employer] Document ID: [id number] Dictated date/time: [id number] LOWER EXTREMITY ARTERIAL DOPPLER STUDY REASON FOR EXAM History of lower extremity bypass. COMMENTS ON THE RIGHT Brachial pressure 182. PT DP pressure 176, 160. BRADEN 0.97. Waveforms biphasic. Digital pressure 100. COMMENTS ON THE LEFT PT DP pressure 155, 160. BRADEN 0.9. Waveforms biphasic. OVERALL IMPRESSION ABIs are normal. Slightly diminished waveforms to suggest arterial occlusive disease. Wound healing potential is good. Job ID/Internal Job ID: [id number] Keaton Kelley MD [facility] US PROCEDURES Final Re sult * US Arterial Duplex Lower Extremity Right Limited (11/12/2024 10:58 AM BLISTER PACKING MACHINE TENDER) Anatomical Region Laterality Modality Vascular Right Ultrasound 11/12/2024 Narrative 11/14/2024 11:20 AM BLISTER PACKING MACHINE TENDER [facility] Job ID: [id number] [facility] Document ID: [id number] Dictated date/time: [id number] RIGHT LOWER EXTREMITY ARTERIAL DUPLEX REASON FOR EXAM History of right femoral-popliteal artery bypass graft. FINDINGS Right common femoral artery is patent, velocity 65 cm/sec. Right femoral to popliteal artery bypass graft is patent, velocity 66, 41, 43 and 46 cm/sec. OVERALL IMPRESSION Patent right femoral to popliteal artery bypass graft. Job ID/Internal Job ID: [id number] Keaton Kelley MD [facility] US PROCEDURES Final Re sult * US Duplex Scan of Aorta; Inferior Vena Cava, Iliac, Complete (11/12/2024 10:57 AM BLISTER PACKING MACHINE TENDER) Anatomical Region Laterality Modality Vascular Ultrasound 11/12/2024 Narrative 11/14/2024 11:20 AM BLISTER PACKING MACHINE TENDER [facility] Job ID: [id number] [facility] Document ID: [id number] Dictated date/time: [id number] AORTIC DUPLEX REASON FOR EXAM History of aortobifemoral bypass. FINDINGS The aorta is patent, velocity of 46 cm/sec. Right and left iliac limbs are patent, velocity 64, 75 and 76 and 47 cm/sec respectively. OVERALL IMPRESSION Patent aortobifemoral bypass. Job ID/Internal Job ID: [id number] Curtis Hebert MD [facility] US PROCEDURES Final Res ult from Last 3 Months Insurance MEDICARE [facility] MEDICARE [facility] MEDICARE [facility] MEDICARE SUPPLEMENT Advance Directives For more information, please contact: [phone] Documents on File Type Date Recorded Patient Nitriles Lab Technician Expl anation ADVANCE DIRECTIVE 09/26/2011 12:00 AM [facility] ADVANCE DIRECTIVE 09/26/2011 12:00 AM [facility] FINANCIAL/MEDICAL Care Teams Presto Log Operator Relationship Specialty Start Date End Date Tereza Burgos NP [address] [place] [address] PCP - General Family Medicine 11/20/24
--- OUTSIDE RECORDS SUMMARY | 2025-01-20 10:16 | XMS_ITS | Clinical Summary ---
Author Organization [facility] [employer] Address [address] [place] [address] Care Team Providers Care Nuclear Design Engineer Name Role Phone Jase Day MD Primary Care Provider [phone] Source Comments [facility] [employer],non-owned Affiliates and Associated Physician Practices is amultiple site organization consisting of ambulatory clinics and hospital sitesin [place], [place], [place] and [place]. This disclosure is being madepursuant to the Care Everywhere program and may not contain all information available regarding this patient. Last updated 18.[facility] [employer] Allergies No known active allergies Medications * Be aware that medications may not be up to date on this document. Alwaysverify current medications with the patient. Medication Sig Dispensed Refills Start Date End Date Status atorvastatin (LIPITOR) 40 MG tablet Take 1 tablet by mouth once daily 1 05/10/2018 Active lisinopril (PRINIVIL; ZESTRIL) 20 MG tablet Take 1 tablet by mouth once daily 3 04/14/2018 Active brmtkqve-sdabdrpab-j exameth (MAXITROL) ophthalmic ointment Instill into both eyes at bedtime 1 05/10/2018 Active erythromycin (ROMYCIN) 5 MG/GM ophthalmic ointment Apply thin ribbon to lower lid(s) and over the incisions 1 packet 2 10/29/2018 Active Active Problems Problem Noted Date Diagnosed Date Senile ectropion of both lower eyelids 8 Immunizations Name Administration Dates Next Due INFLUENZA VACCINE, HIGH-DOSE , QUADR. (FLUZONE HIGH-DOSE QUADRIVALENT; 65Y+), 0.7 ML (HD-IIV4) 06/22/2018 Social History Tobacco Use Types Packs/Day Years Used Date Smoking Tobacco: Former Cigarettes Q uit: 05/31/2003 Smokeless Tobacco: Never Alcohol Use Standard Drinks/Week Comments No 0 (1 standard drink = 0.6 oz pur e alcohol) Sex and Gender Information Value Date Recorded Sex Assigned at Not on file Gender Identity Not on file Sexual Orientation Not on file Last Filed Vital Signs Vital Sign Reading Time Taken Comments Blood Pressure 107/63 10/29/2018 12:02 PM ORIENTOR Pulse 63 10/29/2018 12:02 PM ORIENTOR Temperature 36.7 C (98.1 F) 10/29/2018 12:02 PM ORIENTOR Respiratory Rate 16 10/29/2018 12:02 PM ORIENTOR Oxygen Saturation 100% 10/29/2018 12:02 PM ORIENTOR Inhaled Oxygen Concentration 21% 10/29/2018 9 :05 AM ORIENTOR Weight 87.5 kg (193 lb) 10/29/2018 9:05 AM ORIENTOR Height 177.8 cm (5' 10 ) 10/29/2018 9:05 AM ORIENTOR Body Mass Index 27.69 10/29/2018 9:05 AM ORIENTOR Plan of Treatment Health Maintenance Due Date Last Done Comments MEDICARE AWV 12 MONTHS 1940 DTAP/TDAP/TD VACCINES (1 - Tdap) 1957 PNEUMOCOCCAL VACCINE 50+ (1 of 1 - PCV) 02/21/1988 ZOSTER VACCINE (1 of 2) 02/21/1988 Respiratory Syncytial Virus (RSV) Vaccine Pt: or over 60 yrs (1 - 1-dose 75+ series) 2013 COVID-19 VACCINE ( - 2023-2 5 season) 2024 INFLUENZA VACCINE (#1) 2024 06/22/2018 DEPRESSION SCREENING 10/16/2024 HEPATITIS B VACCINE Aged Out No longe r eligible based on patient's age to complete this topic HIB VACCINE Aged Out No longer eligi ble based on patient's age to complete this topic HPV VACCINE Aged Out No longer eligi ble based on patient's age to complete this topic MENINGOCOCCAL (Group B) VACC INE SHARED DECISION-MAKING Aged Out No longer eligibl e based on patient's age to complete this topic MENINGOCOCCAL GROUPS A/C/Y/W VACCINE Aged Out No longer eligible b ased on patient's age to complete this topic Advance Directives * Full Code (Latest Code Status on File) Date Activated Date Inactivated Comments 10/29/2018 12:07 PM 10/29/2018 1:14 PM * Full Code Date Activated Date Inactivated Comments 10/26/2018 11:59 AM 10/29/2018 12:07 PM Care Teams Nuclear Design Engineer Relationship Specialty Start Date End Date Jase Day MD PCP - General 05/31/18
--- OUTSIDE RECORDS SUMMARY | 2025-01-20 10:16 | XMS_ITS | Continuity of Care Document ---
Author Organization [facility] Address [address] [place] [address] Phone Care Team Providers Care Vocational Evaluator Name Role Phone Tay Pete DO Unavailable Unavailable Advance Directives Directive Yes / No Effective Date File Name No Information Encounters Encounter Description Practice Location Reason(s) For Visit Diagnoses Date Provider Providers Copied on Encounter [facility], [address], [place], [place], [id number], tel:[phone] [facility] No Information Yanci Alfredo. [address] [place], [address], [place]. tel: [phone] Family History Family Member Type Diagnosis Age At Onset No Information Payers Payer name Insurance type Covered constitution party ID Authoriza tion(s) [place] [id number] Social History Type Description Quantity Date Captured Comments Sex Male Smoking Status No Information Chief Complaint And Reason For Visit No Information Reason For Referral Reason For Referral No Information History Of Present Illness Encounter Date Complaint History Of Prese nt Illness No Information Functional Status Date Functional Assessmen t No Information Instructions Date Instruction Additional Infor mation No Information Assessments Type Assessment Date No Information Patient Care Teams Name Effective Dates (start - stop) Status Members No Information
--- OUTSIDE RECORDS SUMMARY | 2025-01-20 10:16 | XMS_ITS | Encounter Summary ---
Author Organization [facility] Facility Care Team Providers Care Gaming Cage Worker Name Role Phone Jase Day MD Primary Care Provider [phone] Curtis Hebert MD Primary Care Provider [phone] Jase Day MD Primary Care Provider [phone] Tereza Burgos NP Primary Care Provider [phone] Encounter Details Date Type Department Care Team (Latest Contact Info) Description 01/02/2019 Orders Only [facility] ProviderRonn MD [address] [place], [place] [id number] Social History Tobacco Use Types Packs/Day Years Used Date Smoking Tobacco: Former Smokeless Tobacco: Never Alcohol Use Standard Drinks/Week Comments No 0 (1 standard drink = 0.6 oz pur e alcohol) Sex and Gender Information Value Date Recorded Sex Assigned at Not on file Legal Sex Male 8:56 AM SHIPYARD PAINTER HELPER Gender Identity Male 10/04/2021 7:54 PM SHIPYARD PAINTER HELPER Sexual Orientation Straight 10/04/2021 7: 54 PM SHIPYARD PAINTER HELPER documented as of this encounter Plan of Treatment Not on file documented as of this encounter Procedures Procedure Name Priority Date/Time Associated Diagnosis Comments PROCEDURE - RESULT 12/14/2018 12 :00 AM SHIPYARD PAINTER HELPER documented in this encounter Results * PROCEDURE - RESULT (12/14/2018 12:00 AM SHIPYARD PAINTER HELPER) Narrative 12/14/2018 12:00 AM SHIPYARD PAINTER HELPER Ordered by an unspecified provider. Historical Provider Final Res ult documented in this encounter Visit Diagnoses Not on filedocumented in this encounter Care Teams Gaming Cage Worker Relationship Specialty Start Date End Date Jase Day MD [address] [place] [address] PCP - General Family Medicine 11/01/18 03/11/20 Curtis Hebert MD [address] [facility] [address] [address] PCP - General 03/12/20 05/13/20 Jase Day MD [address] [place] [address] PCP - General Family Medicine 05/14/20 10/26/22 Tereza Burgos NP [address] [place] [address] PCP - General Family Medicine 11/20/24 documented as of this encounter
--- OUTSIDE RECORDS SUMMARY | 2025-01-20 10:16 | XMS_ITS | Referral Summary ---
Author Organization [facility] [address] Address [address] [place] [address] Care Team Providers Care Psychiatric Tech Name Role Phone Tereza Burgos NP Primary Care Provider [phone] Encounters Date Type Department Care Team Description 11/20/2024 Orders Only [facility] Vascular [facility] Vein Surgery [address] [place] [address] [address] [place] [address] Keaton Kelley MD Aftercare following surgery of the circulatory system (Primary Dx) 11/20/2024 9:30 AM CHARGE HAND Office Visit [facility] Vascular and Vein Surgery [address] [place] [address] [address] [place] [id number] Laurie Peters NP Secondary hypertension (Primary Dx); Other hyperlipidemia; Peripheral arterial occlusive disease 11/12/2024 9:20 AM CHARGE HAND - 11/12/2024 11:59 PM CHARGE HAND Hospital Encounter [facility] [address] [place] [address] Atherosclerosis 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 Discharge Disposition: Discharge to home or self care 11/12/2024 9:21 AM CHARGE HAND - 11/12/2024 11:59 PM CHARGE HAND Hospital Encounter [facility] [address] [place] [address] Atherosclerosis 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 Discharge Disposition: Discharge to home or self care 11/12/2024 Orders Only [facility] Vascular and Vein Surgery [address] [place] [address] [address] [place] [address] Keaton Kelley MD Atherosclerosis 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 (Primary Dx) 11/12/2024 9:19 AM CHARGE HAND - 11/12/2024 11:59 PM CHARGE HAND Hospital Encounter [facility] [address] [address] Aneurysm of infrarenal abdominal aorta, unspecified whether ruptured Discharge Disposition: Discharge to home or self care from Last 3 Months Allergies Active Allergy Reactions Criticality Noted Date [...] 09/2017 Assessment & Plan (11/20/2024 2:28 PM CHARGE HAND): Status post right fem-pop bypass graft 2018 denies any symptoms of claudication or ischemic rest pain. Continue aspirin and Plavix. Follow-up in 1 year with a lower extremity arterial duplex Sensorineural hearing loss, bilateral 11/02/2023 Other hyperlipidemia 09/06/2019 Assessment & Plan (10/05/2021 4:16 PM CHARGE HAND): Impression: Chronic stable hyperlipidemia, controlled medications. Plan: Medications reviewed, no changes made. Continue statin therapy as per primary care provider. Assessment & Plan (03/26/2021 1:31 PM CDT): Impression: Patient states his cholesterol is stable. Plan: Continue cholesterol management as per primary care provider. Hypertension 09/06/2019 Assessment & Plan (10/05/2021 4:16 PM CHARGE HAND): Impression: Chronic stable hypertension, controlled medications. Blood [...] 2017 Assessment & Plan (11/20/2024 2:29 PM CHARGE HAND): Aortobifemoral bypass graft for AAA 2009. Endograft remains patent per current duplex. Continue aspirin Plavix and statin therapy and follow up in 1 year for routine surveillance with aortic duplex Assessment & Plan (10/28/2022 10:43 AM CHARGE HAND): Patient is status post aortobifemoral bypass for AAA repair in 2009. He continues to do well after surgery. Denies any abdominal side or back pain no claudication with ambulation. Duplex today 10/27/2022 shows the graft is patent. Plan: Return in 1 year for routine surveillance with an aortic duplex. Assessment & Plan (10/05/2021 4:15 PM CHARGE HAND): Impression: Patient is status post aortobifemoral bypass graft in 2009. Bypass graft is patent is seen on abdominal arterial duplex with an elevated velocity of 165 to the left anastomosis. Patient has palpable bilateral femoral pulses and distal pulses. Plan: Recommend ongoing risk factor modifications. Patient to follow-up in 1 year for re-evaluation with abdominal arterial duplex. Atherosclerosis of [place] ar marialuisa of both lower extremities with intermittent claudication 09/21/2018 Assessment & Plan (10/28/2022 10:44 AM CHARGE HAND): Bilateral lower extremity arterial occlusive disease status post fem-pop bypass with [place]-William 01/02/2019. Patient has bilateral biphasic waveforms distally. He denies any claudication or rest pain. The graft is patent on duplex 10/27/2022. Both lower extremities are warm with palpable distal pulses. Return in 1 year for routine surveillance with a lower extremity arterial duplex. Assessment & Plan (10/05/2021 4:16 PM CHARGE HAND): Impression: Patient is status post right femoral [...] ectropion of both lower eyelids 8 Immunizations Immunization Administration Dates Next Due Influenza, Trivalent, High D ose, Split, Preservative Free, Intramuscular 06/22/2018,07/25/2017 Influenza, Trivalent, IM (MDV) 08/06/2018 Influenza, Unspecified 07/25/2017 Pneumococcal Conjugate PCV 13 09/10/2018, 017 Pneumococcal Polysaccharide PPV23 05/19/2011, Social History Tobacco Use Types Packs/Day Years Used Date Smoking Tobacco: Former Cigarettes Smokeless Tobacco: Never Tobacco Cessation:Counseling Given: Not Answered Alcohol Use Standard Drinks/Week Comments No 0 (1 standard drink = 0.6 oz pur e alcohol) Sex and Gender Information Value Date Recorded Sex Assigned at Not on file Legal Sex Male 8:56 AM CHARGE HAND Gender Identity Male 10/04/2021 7:54 PM CHARGE HAND Sexual Orientation Straight 10/04/2021 7: 54 PM CHARGE HAND Last Filed Vital Signs Vital Sign Reading Time Taken Comments Blood Pressure 159/74 11/20/2024 9:32 AM CHARGE HAND Pulse 74 11/20/2024 9:32 AM CHARGE HAND Temperature 36.8 C (98.3 F) 09/05/2019 2:28 PM CHARGE HAND Respiratory Rate - - Oxygen Saturation 95% 03/05/2024 10:30 AM CDT Inhaled Oxygen Concentration - - Weight 81.6 kg (180 lb) 11/20/2024 9:32 AM CHARGE HAND Height 177.8 cm (5' 10 ) 11/20/2024 9:32 AM CHARGE HAND Body Mass Index 25.83 11/20/2024 9:32 AM CHARGE HAND Plan of Treatment Not on file Procedures Procedure Name Priority Date/Time Associated Diagnosis Comments US BRADEN Schedule Routine, Read Routine (OP Routine) 11/12/2024 10:59 AM CHARGE HAND Atherosclerosis 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 US ARTERIAL DUPLEX LOWER EXTREMITY RIGHT LIMITED Schedule Routine, Read Routine (OP Routine) 11/12/2024 10:58 AM CHARGE HAND Atherosclerosis 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 US DUPLEX SCAN OF AORTA: INFERIOR VENA CAVA, ILIAC, COMPLETE Schedule Routine, Read Routine (OP Routine) 11/12/2024 10:57 AM CHARGE HAND Aneurysm of infrarenal abdominal aorta, unspecified whether ruptured from Last 3 Months Results * US BRADEN (11/12/2024 10:59 AM CHARGE HAND) Anatomical Region Laterality Modality Vascular N/A Ultrasound 11/12/2024 Narrative 11/14/2024 11:20 AM CHARGE HAND [employer] Job ID: [id number] [employer] Document ID: [id number] Dictated date/time: [id number] LOWER EXTREMITY ARTERIAL DOPPLER STUDY REASON FOR [...] potential is good. Job ID/Internal Job ID: [id number] Keaton Kelley MD [facility] [place] PROCEDURES Final Re sult * US Arterial Duplex Lower Extremity Right Limited (11/12/2024 10:58 AM CHARGE HAND) Anatomical Region Laterality Modality Vascular Right Ultrasound 11/12/2024 Narrative 11/14/2024 11:20 AM CHARGE HAND [employer] Job ID: [id number] [employer] Document ID: [id number] Dictated date/time: [id number] RIGHT LOWER EXTREMITY ARTERIAL DUPLEX REASON FOR EXAM History of right femoral-popliteal artery bypass graft. FINDINGS Right common femoral artery is patent, velocity 65 cm/sec. Right femoral to popliteal artery bypass graft is patent, velocity 66, 41, 43 and 46 cm/sec. OVERALL IMPRESSION Patent right femoral to popliteal artery bypass graft. Job ID/Internal Job ID: [id number] Keaton Kelley MD [facility] [place]ED[place] Final Re sult * US Duplex Scan of Aorta; Inferior Vena Cava, Iliac, Complete (11/12/2024 10:57 AM CHARGE HAND) Anatomical Region Laterality Modality Vascular Ultrasound 11/12/2024 Narrative 11/14/2024 11:20 AM CHARGE HAND [employer] Job ID: [id number] [employer] Document ID: [id number] Dictated date/time: [id number] AORTIC DUPLEX REASON FOR EXAM History of aortobifemoral bypass. FINDINGS The aorta is patent, velocity of 46 cm/sec. Right and left iliac limbs are patent, velocity 64, 75 and 76 and 47 cm/sec respectively. OVERALL IMPRESSION Patent aortobifemoral bypass. Job ID/Internal Job ID: [id number] us Curtis Hebert MD [facility] PROCEDURES Final Res ult from Last 3 [place] [address] MEDICARE [facility] MEDICARE [facility] MEDICARE BLUE CROSS MEDICARE SUPPLEMENT Advance Directives For more information, please contact: [phone] Documents on File Type Date Recorded Patient Grievance And Appeals Specialist Expl anation ADVANCE DIRECTIVE 09/26/2011 12:00 AM [facility] ING WILL ADVANCE DIRECTIVE 09/26/2011 12:00 AM [facility] OF PATTERN DRAFTER FINANCIAL/MEDICAL Care Teams Psychiatric Tech Relationship Specialty Start Date End Date Tereza Burgos NP [address] [place] [address] PCP - General Family Medicine 11/20/24
--- OUTSIDE RECORDS SUMMARY | 2025-01-20 10:16 | XMS_ITS | Encounter Summary ---
Author Organization [facility] Facility Care Team Providers Care Yoker Machine Operator Name Role Phone Jase Day MD Primary Care Provider [phone] Curtis Hebert MD Primary Care Provider [phone] Jase Day MD Primary Care Provider [phone] Tereza Burgos NP Primary Care Provider [phone] Encounter Details Date Type Department Care Team (Latest Contact Info) Description 11/13/2018 Orders Only [facility] ProviderRonn MD [address] [place], [place] [id number] Social History Tobacco Use Types Packs/Day Years Used Date Smoking Tobacco: Former Smokeless Tobacco: Never Alcohol Use Standard Drinks/Week Comments No 0 (1 standard drink = 0.6 oz pur e alcohol) Sex and Gender Information Value Date Recorded Sex Assigned at Not on file Legal Sex Male 8:56 AM MAINTENANCE ASSOCIATE Gender Identity Male 10/04/2021 7:54 PM MAINTENANCE ASSOCIATE Sexual Orientation Straight 10/04/2021 7: 54 PM MAINTENANCE ASSOCIATE documented as of this encounter Plan of Treatment Not on file documented as of this encounter Procedures Procedure Name Priority Date/Time Associated Diagnosis Comments PROCEDURE - RESULT 11/29/2018 12 :00 AM MAINTENANCE ASSOCIATE documented in this encounter Results * PROCEDURE - RESULT (11/29/2018 12:00 AM MAINTENANCE ASSOCIATE) Narrative 11/29/2018 12:00 AM MAINTENANCE ASSOCIATE Ordered by an unspecified provider. Historical Provider Final Res ult documented in this encounter Visit Diagnoses Not on filedocumented in this encounter Care Teams Yoker Machine Operator Relationship Specialty Start Date End Date Jase Day MD [address] [place] [address] PCP - General Family Medicine 11/01/18 03/11/20 Curtis Hebert MD [address] [facility] [address] [address] PCP - General 03/12/20 05/13/20 Jase Day MD [address] [place] [address] PCP - General Family Medicine 05/14/20 10/26/22 Tereza Burgos NP [address] [place] [address] PCP - General Family Medicine 11/20/24 documented as of this encounter
--- OUTSIDE RECORDS SUMMARY | 2025-01-20 10:16 | XMS_ITS | Encounter Summary ---
Author Organization [facility] Facility Care Team Providers Care Admiralty Lawyer Name Role Phone No, Physician Primary Care Provider [phone] Jase Day MD Primary Care Provider [phone] Curtis Hebert MD Primary Care Provider [phone] Jase Day MD Primary Care Provider [phone] Tereza Burgos NP Primary Care Provider [phone] Encounter Details Date Type Department Care Team (Latest Contact Info) Description 10/03/2018 Orders Only [facility] ProviderRonn MD [address] [place] [address] Social History Tobacco Use Types Packs/Day Years Used Date Smoking Tobacco: Never Assessed Sex and Gender Information Value Date Recorded Sex Assigned at Not on file Legal Sex Male 8:56 AM BRAKE ADJUSTER Gender Identity Male 10/04/2021 7:54 PM BRAKE ADJUSTER Sexual Orientation Straight 10/04/2021 7: 54 PM BRAKE ADJUSTER documented as of this encounter Plan of Treatment Not on file documented as of this encounter Procedures Procedure Name Priority Date/Time Associated Diagnosis Comments PROCEDURE - RESULT 10/03/2018 12 :00 AM BRAKE ADJUSTER PROCEDURE - RESULT 09/27/2018 12 :00 AM BRAKE ADJUSTER documented in this encounter Results * PROCEDURE - RESULT (10/03/2018 12:00 AM BRAKE ADJUSTER) Narrative 10/03/2018 12:00 AM BRAKE ADJUSTER Ordered by an unspecified provider. Historical Provider Final Res ult * PROCEDURE - RESULT (09/27/2018 12:00 AM BRAKE ADJUSTER) Narrative 09/27/2018 12:00 AM BRAKE ADJUSTER Ordered by an unspecified provider. Historical Provider Final Res ult documented in this encounter Visit Diagnoses Not on filedocumented in this encounter Care Teams Admiralty Lawyer Relationship Specialty Start Date End Date No, Physician PCP - General 10/03/18 10/31/18 Jase Day MD [address] [place] [address] PCP - General Family Medicine 11/01/18 03/11/20 Curtis Hebert MD [address] [facility] [address] [address] PCP - General 03/12/20 05/13/20 Jase Day MD [address] [place] [address] PCP - General Family Medicine 05/14/20 10/26/22 Tereza Burgos NP [address] [place] [address] PCP - General Family Medicine 11/20/24 documented as of this encounter
--- OUTSIDE RECORDS SUMMARY | 2025-01-20 10:18 | XMS_ITS | Continuity of Care Document ---
Author Organization [facility] Address [address] [place] [address] Phone Care Team Providers Care Plow Holder Name Role Phone Tay Pete DO Unavailable Unavailable Advance Directives Directive Yes / No Effective Date File Name No Information Encounters Encounter Description Practice Location Reason(s) For Visit Diagnoses Date Provider Providers Copied on Encounter [facility], [address], [place], [place], [id number], tel:[phone] [facility] No Information Yanci Alfredo. [address] [place], [address], [place]. tel: [phone] Family History Family Member Type Diagnosis Age At Onset No Information Payers Payer name Insurance type Covered libertarian ID Authoriza tion(s) [place] [id number] Social History Type Description Quantity Date Captured [...]
[2025-01-20 10:21] LABS: EDCOVIDSCREEN Negative (Negative); EDINFLUASCREEN Negative (Negative); EDINFLUBSCREEN Negative (Negative)
== END 2025-01-20 10:17 | disposition home or self-care (01) ==
PROVIDERS: Emergency Provider Nurse Practitioner Family; PCP Nurse Practitioner Family
DX: J06.9 Acute upper respiratory infection, unspecified (principal); R05.9 Cough, unspecified; H61.23 Impacted cerumen, bilateral; Z20.822 Contact with and (suspected) exposure to COVID-19; Z87.891 Personal history of nicotine dependence; I10 Essential (primary) hypertension; E78.00 Pure hypercholesterolemia, unspecified
CPT/HCPCS: 69210; 87426; 87804; 99213; G0463

== ENCOUNTER 2025-02-01 10:42 | Emergency (ER) | payer MEDICARE, SELFPAY ==
--- NOTE | ~2025-02-01 | XR_ITS ---
EXAMINATION: XR chest 2V DATE: 02/01/2025 12:09 INDICATION: Cough, wheezing and chest congestion TECHNIQUE: PA and lateral views of the chest were obtained. COMPARISON: Chest radiograph dated 02/18/2010 FINDINGS: Likely nipple shadows project over the diaphragm and anterior seventh ribs on both the left and more conspicuously on the right on the frontal projection and are without intrapulmonary correlate on the lateral projection. No other airspace opacities, pulmonary edema, pleural effusion or pneumothorax. T he cardiomediastinal silhouette is normal. Moderate to severe thoracic spondylosis with chronic mild anterior wedging of a few mid thoracic vertebral bodies. IMPRESSION: 1. No acute cardiopulmonary disease. Reviewed, dictated and finalized at location A.
--- OUTSIDE RECORDS SUMMARY | 2025-02-01 10:45 | XMS_ITS | Referral Summary ---
Author Organization [facility] [address] Address [address] [place] [address] Care Team Providers Care Mechanical Expert Name Role Phone Tereza Burgos NP Primary Care Provider [phone] Encounters Date Type Department Care Team Description 11/20/[address] [facility] Medical Group Vascular and Vein Surgery [address] [place] [address] [address] [place] [address] Keaton Kelley MD Aftercare following surgery of the circulatory system (Primary Dx) 11/20/2024 9:30 AM DEATH SURVEYS CODER Office Visit [facility] Medical [facility] Vascular and Vein Surgery [address] [place] [address] [address] [place] [id number] Laurie Peters NP Secondary hypertension (Primary Dx); Other hyperlipidemia; Peripheral arterial occlusive disease 11/12/2024 9:20 AM DEATH SURVEYS CODER - 11/12/2024 11:59 PM DEATH SURVEYS CODER Hospital Encounter [facility] [address] [place] [address] Atherosclerosis 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 Discharge Disposition: Discharge to home or self care 11/12/2024 9:21 AM DEATH SURVEYS CODER - 11/12/2024 11:59 PM DEATH SURVEYS CODER Hospital Encounter [facility] [address] [place] [address] Atherosclerosis 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 Medical [facility] Vascular and Vein Surgery [address] [place] [address] [address] [place] [address] Keaton Kelley MD Atherosclerosis 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 (Primary Dx) 11/12/2024 9:19 AM DEATH SURVEYS CODER - 11/12/2024 11:59 PM DEATH SURVEYS CODER Hospital Encounter [facility] 2 Vascular [address] [address] Aneurysm of infrarenal abdominal aorta, unspecified whether [...] cholecalciferol (VITAMIN D-3) 1,000 unit Take 1 tablet/capsul e (1,000 Units total) by mouth daily Active magnesium 30 mg tablet Take 200 mg by mouth daily. Active ascorbic acid (VITAMIN C) 500 mg tablet,chewable Take 1 tablet/chew tab (500 mg total) by mouth daily Active vitamin B complex (B COMPLEX 1 ORAL) Rx: B Complex Active aspirin 81 mg enteric coated tablet TK 1 T PO D 3 9 Active omeprazole (PriLOSEC) 20 mg capsule 2 [...] MOUTH EVERY DAY AT BEDTIME 3 Active clopidogreL (PLAVIX) 75 mg tablet Take 1 tablet (75 mg total) by mouth daily 90 tablet 3 5 Active clopidogreL (PLAVIX) 75 mg tablet TAKE ONE TABLET BY MOUTH DAILY 90 tablet 8 2 01/29/20 25 Discontinu ed(Reorder ) Active Problems Problem Noted Date Diagnosed Date Aortic aneurysm 11/02/2023 Overview (11/02/2023): Aug 01, 2017 Entered By: BERNY OCHOA Comment: repaired 2010 Benign prostatic hyperplasia with urinary obstru ction 11/02/2023 Hearing loss 11/02/2023 Peripheral arterial occlusive disease 11/02/2023 Overview (11/02/2023): Jul 31, 2017 Entered By: BERNY OCHOA Comment: stents in legsDec 2016 Entered By: BERNY OCHOA Comment: claudication RLE 2017 - abnl BRADEN 09/2017 Assessment & Plan (11/20/2024 2:28 PM DEATH SURVEYS CODER): Status post right fem-pop bypass graft 2018 denies any symptoms of claudication or ischemic rest pain. Continue aspirin and Plavix. Follow-up in 1 year with a lower extremity arterial duplex Sensorineural hearing loss, bilateral 11/02/2023 Other hyperlipidemia 09/06/2019 Assessment & Plan (10/05/2021 4:16 PM DEATH SURVEYS CODER): Impression: Chronic stable hyperlipidemia, controlled medications. Plan: Medications reviewed, no changes made. Continue statin therapy as per primary care provider. Assessment & Plan (03/26/2021 1:31 PM CDT): Impression: Patient states his cholesterol is stable. Plan: Continue cholesterol management as per primary care provider. Hypertension 09/06/2019 Assessment & Plan (10/05/2021 4:16 PM DEATH SURVEYS CODER): Impression: Chronic stable hypertension, controlled medications. Blood [...] 2017 Assessment & Plan (11/20/2024 2:29 PM DEATH SURVEYS CODER): Aortobifemoral bypass graft for AAA 2009. Endograft remains patent per current duplex. Continue aspirin Plavix and statin therapy and follow up in 1 year for routine surveillance with aortic duplex Assessment & Plan (10/28/2022 10:43 AM DEATH SURVEYS CODER): Patient is status post aortobifemoral bypass for AAA repair in 2009. He continues to do well after surgery. Denies any abdominal side or back pain no claudication with ambulation. Duplex today 10/27/2022 shows the graft is patent. Plan: Return in 1 year for routine surveillance with an aortic duplex. Assessment & Plan (10/05/2021 4:15 PM DEATH SURVEYS CODER): Impression: Patient is status post aortobifemoral bypass [...] 09/21/2018 Assessment & Plan (10/28/2022 10:44 AM DEATH SURVEYS CODER): Bilateral lower extremity arterial occlusive disease status post fem-pop bypass with [place] 01/02/2019. Patient has bilateral biphasic waveforms distally. He denies any claudication or rest pain. The graft is patent on duplex 10/27/2022. Both lower extremities are warm with palpable distal pulses. Return in 1 year for routine surveillance with a lower extremity arterial duplex. Assessment & Plan (10/05/2021 4:16 PM DEATH SURVEYS CODER): Impression: Patient is status post right femoral [...] on file Legal Sex Male 8:56 AM DEATH SURVEYS CODER Gender Identity Male 10/04/2021 7:54 PM DEATH SURVEYS CODER Sexual Orientation Straight 10/04/2021 7: 54 PM DEATH SURVEYS CODER Last Filed Vital Signs Vital Sign Reading Time Taken Comments Blood Pressure 159/74 11/20/2024 9:32 AM DEATH SURVEYS CODER Pulse 74 11/20/2024 9:32 AM DEATH SURVEYS CODER Temperature 36.8 C (98.3 F) 09/05/2019 2:28 PM DEATH SURVEYS CODER Respiratory Rate - - Oxygen Saturation 95% 03/05/2024 10:30 AM CDT Inhaled Oxygen Concentration - - Weight 81.6 kg (180 lb) 11/20/2024 9:32 AM DEATH SURVEYS CODER Height 177.8 cm (5' 10 ) 11/20/2024 9:32 AM DEATH SURVEYS CODER Body Mass Index 25.83 11/20/2024 9:32 AM DEATH SURVEYS CODER Plan of Treatment Not on file Procedures Procedure Name Priority Date/Time Associated Diagnosis Comments US BRADEN Schedule Routine, Read Routine (OP Routine) 11/12/2024 10:59 AM DEATH SURVEYS CODER Atherosclerosis 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 US ARTERIAL DUPLEX LOWER EXTREMITY RIGHT LIMITED Schedule Routine, Read Routine (OP Routine) 11/12/2024 10:58 AM DEATH SURVEYS CODER Atherosclerosis 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 US DUPLEX SCAN OF AORTA: INFERIOR VENA CAVA, ILIAC, COMPLETE Schedule Routine, Read Routine (OP Routine) 11/12/2024 10:57 AM DEATH SURVEYS CODER Aneurysm of infrarenal abdominal aorta, unspecified whether ruptured from Last 3 Months Results * US BRADEN (11/12/2024 10:59 AM DEATH SURVEYS CODER) Anatomical Region Laterality Modality Vascular N/A Ultrasound 11/12/2024 Narrative 11/14/2024 11:20 AM DEATH SURVEYS CODER [employer] Job ID: [id number] [employer] Document ID: [id number] Dictated date/time: [id number] LOWER EXTREMITY ARTERIAL DOPPLER STUDY REASON FOR [...] potential is good. Job ID/Internal Job ID: [id number] us Keaton Kelley MD IM US PROCEDURES Final Re sult * US Arterial Duplex Lower Extremity Right Limited (11/12/2024 10:58 AM DEATH SURVEYS CODER) Anatomical Region Laterality Modality Vascular Right Ultrasound 11/12/2024 Narrative 11/14/2024 11:20 AM DEATH SURVEYS CODER [employer] Job ID: [id number] [employer] Document ID: [id number] Dictated date/time: [id number] RIGHT LOWER EXTREMITY ARTERIAL DUPLEX REASON FOR EXAM History of right femoral-popliteal artery bypass graft. FINDINGS Right common femoral artery is patent, velocity 65 cm/sec. Right femoral to popliteal artery bypass graft is patent, velocity 66, 41, 43 and 46 cm/sec. OVERALL IMPRESSION Patent right femoral to popliteal artery bypass graft. Job ID/Internal Job ID: [id number] us Keaton Kelely MD IMG US PROCEDURES Final Re sult * US Duplex Scan of Aorta; Inferior Vena Cava, Iliac, Complete (11/12/2024 10:57 AM DEATH SURVEYS CODER) Anatomical Region Laterality Modality Vascular Ultrasound 11/12/2024 Narrative 11/14/2024 11:20 AM DEATH SURVEYS CODER [employer] Job ID: [id number] [employer] Document ID: [id number] Dictated date/time: [id number] AORTIC DUPLEX REASON FOR EXAM History of aortobifemoral bypass. FINDINGS The aorta is patent, velocity of 46 cm/sec. Right and left iliac limbs are patent, velocity 64, 75 and 76 and 47 cm/sec respectively. OVERALL IMPRESSION Patent aortobifemoral bypass. Job ID/Internal Job ID: [id number] us Curtis Hebert MD [facility] [place] PROCEDURES Final Res ult from Last 3 Months Insurance MEDICARE [facility] MEDICARE [facility] MEDICARE BLUE CROSS MEDICARE SUPPLEMENT Advance Directives For more information, please contact: [phone] Documents on File Type Date Recorded Patient Airfield Engineer Officer Expl anation ADVANCE DIRECTIVE 09/26/2011 12:00 AM AUREA ING WILL ADVANCE DIRECTIVE 09/26/2011 12:00 AM KELLY ER OF TEAM ASSEMBLY LINE MACHINE OPERATOR FINANCIAL/MEDICAL Care Teams Mechanical Expert Relationship Specialty Start Date End Date Tereza Burgos NP [address] [place], [place] [id number] PCP - General Family Medicine 11/20/24
--- OUTSIDE RECORDS SUMMARY | 2025-02-01 10:45 | XMS_ITS | Encounter Summary ---
Author Organization [facility] Facility Care Team Providers Care Wide Area Network Systems Administrator Name Role Phone Jase Day MD Primary Care Provider [phone] Curtis Hebert MD Primary Care Provider [phone] Jase Day MD Primary Care Provider [phone] Tereza Burgos NP Primary Care Provider [phone] Encounter Details Date Type Department Care Team (Latest Contact Info) Description 01/02/2019 Orders Only [facility]INCON[facility] ProviderRonn MD [address] [place], [place] [id number] Social History Tobacco Use Types Packs/Day Years Used Date Smoking Tobacco: Former Smokeless Tobacco: Never Alcohol Use Standard Drinks/Week Comments No 0 (1 standard drink = 0.6 oz pur e alcohol) Sex and Gender Information Value Date Recorded Sex Assigned at Not on file Legal Sex Male 8:56 AM AUTOMATION MACHINE OPERATOR Gender Identity Male 10/04/2021 7:54 PM AUTOMATION MACHINE OPERATOR Sexual Orientation Straight 10/04/2021 7: 54 PM AUTOMATION MACHINE OPERATOR documented as of this encounter Plan of Treatment Not on file documented as of this encounter Procedures Procedure Name Priority Date/Time Associated Diagnosis Comments PROCEDURE - RESULT 12/14/2018 12 :00 AM AUTOMATION MACHINE OPERATOR documented in this encounter Results * PROCEDURE - RESULT (12/14/2018 12:00 AM AUTOMATION MACHINE OPERATOR) Narrative 12/14/2018 12:00 AM AUTOMATION MACHINE OPERATOR Ordered by an unspecified provider. Historical Provider Final Res ult documented in this encounter Visit Diagnoses Not on filedocumented in this encounter Care Teams Wide Area Network Systems Administrator Relationship Specialty Start Date End Date Jase Day MD [address] [place] [address] PCP - General Family Medicine 11/01/18 03/11/20 Curtis Hebert MD [address] [facility] [address] [address] PCP - General 03/12/20 05/13/20 Jase Day MD [address] [place] [address] PCP - General Family Medicine 05/14/20 10/26/22 Tereza Burgos NP [address] [place] [address] PCP - General Family Medicine 11/20/24 documented as of this encounter
--- OUTSIDE RECORDS SUMMARY | 2025-02-01 10:45 | XMS_ITS | Clinical Summary ---
Author Organization [facility] Address [address] [place] [address] Care Team Providers Care Finishing Machine Operator Automatic Name Role Phone Jase Day MD Primary Care Provider [phone] Social History Tobacco Use Types Packs/Day Years [...] 03/22/2022, 08/30/2021, Additional history exists Pneumococcal Vaccine: 50+ Years Completed 09/10/2018, 05/19/2011, 08/08/2005 Meningococcal B Vaccine Aged Out No l onger eligible based on patient's age to complete this topic Meningococcal Vaccine Aged Out No so dominik eligible based on patient's age to complete this topic RSV Immunizations Under 20 Months Aged Out No longer eligible based on patient's age to complete this topic Insurance MEDICARE [facility] Care Teams Finishing Machine Operator Automatic Relationship Specialty Start Date End Date Jase Day MD [address] [place] [address] PCP - General FAMILY PRACTICE 09/21/22
--- OUTSIDE RECORDS SUMMARY | 2025-02-01 10:45 | XMS_ITS | Clinical Summary ---
Author Organization [facility] Address [address] [place] [address] Care Team Providers Care Turkey Roll Maker Name Role Phone Jase Day MD Primary Care Provider [phone] Source Comments [facility],non-owned Affiliates and Associated Physician Practices is amultiple site organization consisting of ambulatory clinics and hospital sitesin [place], [place], [place] and [place]. This disclosure is being madepursuant to the Care Everywhere program and may not contain all information available regarding this patient. Last updated 18.[facility] Allergies No known active allergies Medications * Be aware that medications may not be up to date on this document. Alwaysverify current medications with the patient. atorvastatin (LIPITOR) 40 MG tablet Take 1 tablet by mouth once daily 1 8 Active lisinopril (PRINIVIL; ZESTRIL) 20 MG tablet Take 1 tablet by mouth once daily 3 8 Active neomycin-polymy melissa-dexameth (MAXITROL) ophthalmic ointment Instill into both eyes at bedtime 1 8 Active erythromycin (ROMYCIN) 5 MG/GM ophthalmic ointment Apply thin ribbon to lower lid(s) and over the incisions 1 packet 2 9 Active Active Problems Problem Noted Date Diagnosed Date Senile ectropion of both lower eyelids 8 Immunizations Immunization Administration Dates Next Due INFLUENZA VACCINE, HIGH-DOSE [...] at Not on file Legal Sex Male 9:36 AM CDT Gender Identity Not on file Sexual Orientation Not on file Last Filed Vital Signs Vital Sign Reading Time Taken Comments Blood Pressure 107/63 10/29/2018 12:02 PM SALES TRAINING COORDINATOR Pulse 63 10/29/2018 12:02 PM SALES TRAINING COORDINATOR Temperature 36.7 C (98.1 F) 10/29/2018 12:02 PM SALES TRAINING COORDINATOR Respiratory Rate 16 10/29/2018 12:02 PM SALES TRAINING COORDINATOR Oxygen Saturation 100% 10/29/2018 12:02 PM SALES TRAINING COORDINATOR Inhaled Oxygen Concentration 21% 10/29/2018 9 :05 AM SALES TRAINING COORDINATOR Weight 87.5 kg (193 lb) 10/29/2018 9:05 AM SALES TRAINING COORDINATOR Height 177.8 cm (5' 10 ) 10/29/2018 9:05 AM SALES TRAINING COORDINATOR Body Mass Index 27.69 10/29/2018 9:05 AM SALES TRAINING COORDINATOR Plan of Treatment Health Maintenance Due Date Last Done Comments MEDICARE AWV 12 MONTHS 1938 DTAP/TDAP/TD VACCINES (1 - Tdap) 1957 PNEUMOCOCCAL VACCINE 50+ (1 of 1 - PCV) 02/21/1988 ZOSTER VACCINE (1 of 2) 02/21/1988 Respiratory Syncytial Virus (RSV) Vaccine Pt: or over 60 yrs (1 - 1-dose 75+ series) 2013 COVID-19 VACCINE ( - 2023-2 5 season) 2024 DEPRESSION SCREENING 10/16/2024 INFLUENZA VACCINE (Season Ended) 2025 06/22/20 18 HEPATITIS B VACCINE Aged Out No longe [...] age to complete this topic Insurance MEDICARE MEDICARE [facility] Advance Directives * Full Code (Latest Code Status on File) Date Activated Date Inactivated Comments 10/29/2018 12:07 PM 10/29/2018 1:14 PM * Full Code Date Activated Date Inactivated Comments 10/26/2018 11:59 AM 10/29/2018 12:07 PM Care Teams Turkey Roll Maker Relationship Specialty Start Date End Date Jase Day MD [facility] - General 05/31/18
--- OUTSIDE RECORDS SUMMARY | 2025-02-01 10:45 | XMS_ITS | Encounter Summary ---
Author Organization [facility] Facility Care Team Providers Care Room Service Manager Name Role Phone No, Physician Primary Care Provider [phone] Jase Day MD Primary Care Provider [phone] Curtis Hebert MD Primary Care Provider [phone] Jase Day MD Primary Care Provider [phone] Tereza Burgos NP Primary Care Provider [phone] Encounter Details Date Type Department Care Team (Latest Contact Info) Description 10/03/2018 Orders Only [facility] CLINCON[facility] ProviderRonn MD [address] [place] [address] Social History Tobacco Use Types Packs/Day Years Used Date Smoking Tobacco: Never Assessed Sex and Gender Information Value Date Recorded Sex Assigned at Not on file Legal Sex Male 8:56 AM STAFFING PROGRAM MANAGER Gender Identity Male 10/04/2021 7:54 PM STAFFING PROGRAM MANAGER Sexual Orientation Straight 10/04/2021 7: 54 PM STAFFING PROGRAM MANAGER documented as of this encounter Plan of Treatment Not on file documented as of this encounter Procedures Procedure Name Priority Date/Time Associated Diagnosis Comments PROCEDURE - RESULT 10/03/2018 12 :00 AM STAFFING PROGRAM MANAGER PROCEDURE - RESULT 09/27/2018 12 :00 AM STAFFING PROGRAM MANAGER documented in this encounter Results * PROCEDURE - RESULT (10/03/2018 12:00 AM STAFFING PROGRAM MANAGER) Narrative 10/03/2018 12:00 AM STAFFING PROGRAM MANAGER Ordered by an unspecified provider. Historical Provider Final Res ult * PROCEDURE - RESULT (09/27/2018 12:00 AM STAFFING PROGRAM MANAGER) Narrative 09/27/2018 12:00 AM STAFFING PROGRAM MANAGER Ordered by an unspecified provider. Historical Provider Final Res ult documented in this encounter Visit Diagnoses Not on filedocumented in this encounter Care Teams Room Service Manager Relationship Specialty Start Date End Date No, Physician PCP - General 10/03/18 10/31/18 Jase Day MD [address] [place] [address] PCP - General Family Medicine 11/01/18 03/11/20 Curtis Hebert MD [address] [facility] [address] [address] PCP - General 03/12/20 05/13/20 Jase Day MD [address] [place] [address] PCP - General Family Medicine 05/14/20 10/26/22 Tereza Burgos NP [address] [place] [address] PCP - General Family Medicine 11/20/24 documented as of this encounter
--- OUTSIDE RECORDS SUMMARY | 2025-02-01 10:45 | XMS_ITS | Encounter Summary ---
Author Organization [facility] Facility Care Team Providers Care Enzyme Chemist Name Role Phone Jase Day MD Primary Care Provider [phone] Curtis Hebert MD Primary Care Provider [phone] Jase Day MD Primary Care Provider [phone] Tereza Burgos NP Primary Care Provider [phone] Encounter Details Date Type Department Care Team (Latest Contact Info) Description 11/13/2018 Orders Only [facility] CLINCONV ProviderRonn MD [address] [place], [place] [id number] Social History Tobacco Use Types Packs/Day Years Used Date Smoking Tobacco: Former Smokeless Tobacco: Never Alcohol Use Standard Drinks/Week Comments No 0 (1 standard drink = 0.6 oz pur e alcohol) Sex and Gender Information Value Date Recorded Sex Assigned at Not on file Legal Sex Male 8:56 AM MATERIAL ANALYST Gender Identity Male 10/04/2021 7:54 PM MATERIAL ANALYST Sexual Orientation Straight 10/04/2021 7: 54 PM MATERIAL ANALYST documented as of this encounter Plan of Treatment Not on file documented as of this encounter Procedures Procedure Name Priority Date/Time Associated Diagnosis Comments PROCEDURE - RESULT 11/29/2018 12 :00 AM MATERIAL ANALYST documented in this encounter Results * PROCEDURE - RESULT (11/29/2018 12:00 AM MATERIAL ANALYST) Narrative 11/29/2018 12:00 AM MATERIAL ANALYST Ordered by an unspecified provider. Historical Provider Final Res ult documented in this encounter Visit Diagnoses Not on filedocumented in this encounter Care Teams Enzyme Chemist Relationship Specialty Start Date End Date Jase Day MD [address] [place] [address] PCP - General Family Medicine 11/01/18 03/11/20 Curtis Hebert MD [address] [facility] [address] [address] PCP - General 03/12/20 05/13/20 Jase Day MD [address] [place] [address] PCP - General Family Medicine 05/14/20 10/26/22 Tereza Burgos NP [address] [place] [address] PCP - General Family Medicine 11/20/24 documented as of this encounter
--- OUTSIDE RECORDS SUMMARY | 2025-02-01 10:45 | XMS_ITS | Continuity of Care Document ---
Author Organization [facility] Address [address] [place] [address] Phone Care Team Providers Care Clinical Investigator Name Role Phone Tay Pete DO Unavailable Unavailable Advance Directives Directive Yes / No Effective Date File Name No Information Encounters Encounter Description Practice Location Reason(s) For Visit Diagnoses Date Provider Providers Copied on Encounter [facility], [address] [place], [place], [id number], tel:[phone] [facility] No Information Yanci Alfredo. [address] [place], [address], [place]. tel: [phone] Family History Family Member Type Diagnosis Age At Onset No Information Payers Payer name Insurance type Covered libertarian ID Authoriza tion(s) [place] [id number] Social History Type Description Quantity Date Captured [...]
--- OUTSIDE RECORDS SUMMARY | 2025-02-01 10:45 | XMS_ITS | Clinical Summary ---
Author Organization [facility] [address] Address [address] [place] [address] Care Team Providers Care Sole Tacker Name Role Phone Tereza Burgos NP Primary Care Provider [phone] Allergies Active Allergy Reactions Criticality Noted Date [...] 09/2017 Assessment & Plan (11/20/2024 2:28 PM GUNSMITH APPRENTICE): Status post right fem-pop bypass graft 2018 denies any symptoms of claudication or ischemic rest pain. Continue aspirin and Plavix. Follow-up in 1 year with a lower extremity arterial duplex Sensorineural hearing loss, bilateral 11/02/2023 Other hyperlipidemia 09/06/2019 Assessment & Plan (10/05/2021 4:16 PM GUNSMITH APPRENTICE): Impression: Chronic stable hyperlipidemia, controlled medications. Plan: Medications reviewed, no changes made. Continue statin therapy as per primary care provider. Assessment & Plan (03/26/2021 1:31 PM CDT): Impression: Patient states his cholesterol is stable. Plan: Continue cholesterol management as per primary care provider. Hypertension 09/06/2019 Assessment & Plan (10/05/2021 4:16 PM GUNSMITH APPRENTICE): Impression: Chronic stable hypertension, controlled medications. Blood [...] 2017 Assessment & Plan (11/20/2024 2:29 PM GUNSMITH APPRENTICE): Aortobifemoral bypass graft for AAA 2009. Endograft remains patent per current duplex. Continue aspirin Plavix and statin therapy and follow up in 1 year for routine surveillance with aortic duplex Assessment & Plan (10/28/2022 10:43 AM GUNSMITH APPRENTICE): Patient is status post aortobifemoral bypass for AAA repair in 2009. He continues to do well after surgery. Denies any abdominal side or back pain no claudication with ambulation. Duplex today 10/27/2022 shows the graft is patent. Plan: Return in 1 year for routine surveillance with an aortic duplex. Assessment & Plan (10/05/2021 4:15 PM GUNSMITH APPRENTICE): Impression: Patient is status post aortobifemoral bypass graft in 2009. Bypass graft is patent is seen on abdominal arterial duplex with an elevated velocity of 165 to the left anastomosis. Patient has palpable bilateral femoral pulses and distal pulses. Plan: Recommend ongoing risk factor modifications. Patient to follow-up in 1 year for re-evaluation with abdominal arterial duplex. 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 Patient has bilateral biphasic waveforms distally. He denies any claudication or rest pain. The graft is patent on duplex 10/27/2022. Both lower extremities are warm with palpable distal pulses. Return in 1 year for routine surveillance with a lower extremity arterial duplex. Assessment & Plan (10/05/2021 4:16 PM GUNSMITH APPRENTICE): Impression: Patient is status post right femoral [...] Department Care Team Description 11/20/2024 9:30 AM GUNSMITH APPRENTICE Office Visit [facility] [address] [place] [phone] Laurie Peters NP Secondary hypertension (Primary Dx); Other hyperlipidemia; Peripheral arterial occlusive disease 11/20/2024 Orders Only [facility] [address] [place] [phone] Keaton Kelley MD Aftercare following surgery of the circulatory system (Primary Dx) 11/12/2024 9:21 AM GUNSMITH APPRENTICE - 11/12/2024 11:59 PM GUNSMITH APPRENTICE Hospital Encounter [facility] Building [address] [place] [address] Atherosclerosis of citizen potaw[place] artery of both lower extremities with intermittent claudication Discharge Disposition: Discharge to home or self care 11/12/2024 9:20 AM GUNSMITH APPRENTICE - 11/12/2024 11:59 PM GUNSMITH APPRENTICE Hospital Encounter [facility] [address] [place] [address] Atherosclerosis of citizen [place] artery of both lower extremities with intermittent claudication Discharge Disposition: Discharge to home or self care 11/12/2024 9:19 AM GUNSMITH APPRENTICE - 11/12/2024 11:59 PM GUNSMITH APPRENTICE Hospital Encounter [facility] [address] [place] [address] Aneurysm of infrarenal abdominal aorta, unspecified whether ruptured Discharge Disposition: Discharge to home or self care 11/12/2024 Orders Only [facility]ascular [facility] Vein Surgery [address] [facility] [address] [place] [phone] Keaton Kelley MD Atherosclerosis of citizen potawatom[place] artery of both lower extremities with intermittent [...] (abdominal aortic aneurysm) without rupture Atherosclerosis of citizen [place] ar mar[place] of both lower extremities with [...] on file Legal Sex Male 8:56 AM GUNSMITH APPRENTICE Gender Identity Male 10/04/2021 7:54 PM GUNSMITH APPRENTICE Sexual Orientation Straight 10/04/2021 7: 54 PM GUNSMITH APPRENTICE Obstetrics History Last Filed Vital Signs Vital Sign Reading Time Taken Comments Blood Pressure 159/74 11/20/2024 9:32 AM GUNSMITH APPRENTICE Pulse 74 11/20/2024 9:32 AM GUNSMITH APPRENTICE Temperature 36.8 C (98.3 F) 09/05/2019 2:28 PM GUNSMITH APPRENTICE Respiratory Rate - - Oxygen Saturation 95% 03/05/2024 10:30 AM CDT Inhaled Oxygen Concentration - - Weight 81.6 kg (180 lb) 11/20/2024 9:32 AM GUNSMITH APPRENTICE Height 177.8 cm (5' 10 ) 11/20/2024 9:32 AM GUNSMITH APPRENTICE Body Mass Index 25.83 11/20/2024 9:32 AM GUNSMITH APPRENTICE Plan of Treatment Health Maintenance Due Date [...] Read Routine (OP Routine) 11/12/2024 10:59 AM GUNSMITH APPRENTICE Atherosclerosis of citizen pot[place] artery of both lower extremities with intermittent claudication US ARTERIAL DUPLEX LOWER EXTREMITY RIGHT LIMITED Schedule Routine, Read Routine (OP Routine) 11/12/2024 10:58 AM GUNSMITH APPRENTICE Atherosclerosis of citizen potaw[place] artery of both lower extremities with intermittent claudication US DUPLEX SCAN OF AORTA: INFERIOR VENA CAVA, ILIAC, COMPLETE Schedule Routine, Read Routine (OP Routine) 11/12/2024 10:57 AM GUNSMITH APPRENTICE Aneurysm of infrarenal abdominal aorta, unspecified whether ruptured from Last 3 Months Results * US BRADEN (11/12/2024 10:59 AM GUNSMITH APPRENTICE) Anatomical Region Laterality Modality Vascular N/A Ultrasound 11/12/2024 Narrative 11/14/2024 11:20 AM GUNSMITH APPRENTICE Inter[employer] Me Job ID: [id number] Inter[employer] Me Document ID: [id number] Dictated date/time: [id number] LOWER EXTREMITY ARTERIAL DOPPLER STUDY REASON FOR [...] potential is good. Job ID/Internal Job ID: [id number] Keaton Kelley MD [facility] US PROCEDURES Final Re sult * US Arterial Duplex Lower Extremity Right Limited (11/12/2024 10:58 AM GUNSMITH APPRENTICE) Anatomical Region Laterality Modality Vascular Right Ultrasound 11/12/2024 Narrative 11/14/2024 11:20 AM GUNSMITH APPRENTICE Amphion Job ID: [id number] Amphion Document ID: [id number] Dictated date/time: [id number] RIGHT LOWER EXTREMITY ARTERIAL DUPLEX REASON FOR EXAM History of right femoral-popliteal artery bypass graft. FINDINGS Right common femoral artery is patent, velocity 65 cm/sec. Right femoral to popliteal artery bypass graft is patent, velocity 66, 41, 43 and 46 cm/sec. OVERALL IMPRESSION Patent right femoral to popliteal artery bypass graft. Job ID/Internal Job ID: [id number] Keaton Kelley MD [facility] US PROCEDURES Final Re sult * US Duplex Scan of Aorta; Inferior Vena Cava, Iliac, Complete (11/12/2024 10:57 AM GUNSMITH APPRENTICE) Anatomical Region Laterality Modality Vascular Ultrasound 11/12/2024 Narrative 11/14/2024 11:20 AM GUNSMITH APPRENTICE Am[employer]ion Job ID: [id number] Amphion Document ID: [id number] Dictated date/time: [id number] AORTIC DUPLEX REASON FOR EXAM History of aortobifemoral bypass. FINDINGS The aorta is patent, velocity of 46 cm/sec. Right and left iliac limbs are patent, velocity 64, 75 and 76 and 47 cm/sec respectively. OVERALL IMPRESSION Patent aortobifemoral bypass. Job ID/Internal Job ID: [id number] Curtis Hebert MD [facility] US PROCEDURES Final Res ult from Last 3 Months Insurance MEDICARE [facility] MEDICARE [facility] MEDICARE [facility] MEDICARE SUPPLEMENT Advance Directives For more information, please contact: [phone] Documents on File Type Date Recorded Patient Chemical Supervisor Expl anation ADVANCE DIRECTIVE 09/26/2011 12:00 AM [facility] WILL ADVANCE DIRECTIVE 09/26/2011 12:00 AM [facility]ICAL Care Teams Sole Tacker Relationship Specialty Start Date End Date Tereza Burgos NP [address] [place] [address] PCP - General Family Medicine 11/20/24
--- OUTSIDE RECORDS SUMMARY | 2025-02-01 10:46 | XMS_ITS | Continuity of Care Document ---
Author Organization [facility] Address [address] [facility] [address] [place] [address] Phone Care Team Providers Care Dynamics Ax Solution Architect Name Role Phone Tay Pete DO Unavailable Unavailable Advance Directives Directive Yes / No Effective Date File Name No Information Encounters Encounter Description Practice Location Reason(s) For Visit Diagnoses Date Provider Providers Copied on Encounter [facility], [address], [place], [place], [id number], tel:[phone] [facility] No Information Yanci Alfredo. [address] [place], [address], [place]. tel: [phone] Family History Family Member Type Diagnosis Age At Onset No Information Payers Payer name Insurance type Covered libertarian ID Authoriza tion(s) [place] [id number] Social History Type Description Quantity Date Captured [...]
[2025-02-01 10:58] VITALS: BP 122/58; PULSE 63; RESP 16; TEMP 36.3; O2SAT 100
--- NOTE | 2025-02-01 12:01 | ED.URI ---
HPI - URI/Sore Throat General Chief Complaint: Upper Respiratory Infection Stated Complaint: Cold like Source: patient Mode of arrival: ambulatory Limitations: no limitations History of Present Illness HPI Narrative: 84 year male presents to [facility] with complaints of 2-3 history of chest congestion and wheezing and morning. Patient was evaluated here on January 20, diagnosed with upper respiratory infection was given a 7 day course of doxycycline, Medrol Dosepak and benzonatate. Patient is a ex-smoker. Patient denies shortness of breath, fever, body aches or chills. Patient denies sick contacts. Patient denies recent travel. MD elicited complaint: other (Chest congestion, wheezing) Onset (ago): day(s) (2-3) Consistency: intermittent Able to tolerate fluids by mouth: Yes Relieving factors: nothing Treatments prior to arrival: antibiotics Related Data Home Medications ?Medication ?Instructions ?Recorded ?Confirmed ?Last Taken ?Type clopidogrel 75 mg tablet 75 mg PO DAILY 12/07/21 08/07/24 Unknown History magnesium 250 mg tablet 250 mg PO DAILY 12/07/21 08/07/24 Unknown History cholecalciferol (vitamin D3) 25 25 mcg PO DAILY 10/06/22 08/07/24 Unknown History mcg (1,000 unit) capsule (Vitamin D3) finasteride 5 mg tablet 5 mg PO DAILY 10/06/22 08/07/24 Unknown History vitamin B complex (B 1 tablet PO DAILY 10/06/22 08/07/24 Unknown History Complex-Vitamin B12 tablet) Allergies Allergy/AdvReac Type Severity Reaction Status Date / Time No Known Allergies Allergy Verified 02/01/25 11:02 Review of Systems Constitutional: Constitutional: Denies chills, Denies fatigue, Denies fever(s) and Denies weakness ENT: Denies dysphagia, Denies vertigo, Denies dizziness, Denies epistaxis and Denies nasal congestion Respiratory: Respiratory: Reports chest congestion, Reports cough, Denies dyspnea and Denies wheezing Gastrointestinal: Gastrointestinal: Denies diarrhea, Denies nausea and Denies vomiting Integumentary/Breasts: Skin/Breast: Denies pruritus, Denies erythema and Denies rash Neurologic: Denies dizziness, Denies syncope and Denies headache(s) [facility] Past Medical History 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 History of stress test Aorta aneurysm Hernia Hypertension High cholesterol Surgical History Surgical History H/O vein stripping Family History Family History Mother Heart disease Social History Social History Smoking status: Former smoker Alcohol intake: never Substance use: never Substance use type: does not use Lack of Transportation: No Lack of Food: Never True Current Housing: I Have Housing Concerned About Future Housing: No Difficulty Paying Gas/Electric Bills: No Difficulty Paying for Meds: No Currently Unemployed: No Comments At time of signature, I agree with nursing past medical, surgical, social and family history. There is no relevant family history pertinent to the presenting complaint. Exam Const: General: healthy appearing and no acute distress Nutritional Appearance: well nourished Orientation/consciousness: patient oriented x3 Limitations: no limitations HENMT: Head: normal to inspection Throat: posterior oropharynx normal and uvula midline Eyes: Conjunctivae: conjunctivae normal Neck: Neck: normal visual inspection Resp: Effort & Inspection: normal respiratory effort and not labored Auscultation: clear to auscultation bilaterally, no crackles, no rales, rhonchi and no wheezes Other: Coarse lung sounds noted throughout Cardio: Rate: regular rate Rhythm: regular rhythm Heart sounds: no murmurs Skin: General skin exam: normal color Rashes: no rashes Wounds: no wounds Neuro: General: patient oriented x3 and moves all extremities Speech: normal speech Gait exam (Neuro): Normal gait present Psych: Affect: normal affect Attitude: cooperative Course Course Level of Care: Express Care Visit Vital Signs Vital signs: Vital Signs Temperature 36.3 C L 02/01/25 10:58 Pulse Rate 63 02/01/25 10:58 Respiratory Rate 16 02/01/25 10:58 Blood Pressure 122/58 L 02/01/25 10:58 Pulse Oximetry 100 02/01/25 10:58 Oxygen Delivery Room Air 02/01/25 10:58 Temperature 36.3 C L 02/01/25 10:58 Pulse Rate 63 02/01/25 10:58 Respiratory Rate 16 02/01/25 10:58 Blood Pressure 122/58 L 02/01/25 10:58 Pulse Oximetry 100 02/01/25 10:58 Oxygen Delivery Room Air 02/01/25 10:58 MDM - URI/Sore Throat MDM Narrative Medical decision making narrative: Discussed chest x-ray with patient. Patient agrees to follow-up with primary care provider to discuss chronic chest congestion. Educated patient to proceed to the emergency room if symptoms worsen Differential Diagnosis Differential diagnosis: Likely otitis media, sinusitis and viral infection Imaging Data Radiologist's impression: Ordering Physician: Isha Sheriff APRN Date of Service: 02/01/25 Procedure(s): XR chest 2V Accession Number(s): [id number] cc: Tereza Burgos APRN; Isha Sheriff APRN~ EXAMINATION: XR chest 2V DATE: 02/01/2025 12:09 INDICATION: Cough, wheezing and chest congestion TECHNIQUE: PA and lateral views of the chest were obtained. COMPARISON: Chest radiograph dated 02/18/2010 FINDINGS: Likely nipple shadows project over the diaphragm and anterior seventh ribs on both the left and more conspicuously on the right on the frontal projection and are without intrapulmonary correlate on the lateral projection. No other airspace opacities, pulmonary edema, pleural effusion or pneumothorax. The cardiomediastinal silhouette is normal. Moderate to severe thoracic spondylosis with chronic mild anterior wedging of a few mid thoracic vertebral bodies. IMPRESSION: 1. No acute cardiopulmonary disease. Reviewed, dictated and finalized at location A. Please be advised this is a medical document. It is intended for [id number] communication. It is written in medical language and may contain unfamiliar abbreviations or verbiage. Medical documents are intended to carry relevant information, facts as evident, and the clinical opinion of the practitioner at the time of the encounter. This report may have been done utilizing a voice recognition system. Attempts have been made to correct errors. However, there may be uncorrected grammatical, spelling, and recognition errors present. The file time of this note does not necessarily represent the time of service. Dictated By: Ilia An MD 02/01/25 1242 Critical Care Time Critical Care Time Critical Care Time: No Discharge Plan Discharge Clinical Impression: Chest congestion, Chronic cough Patient Disposition: Home Condition: Stable Instructions: Chronic Cough (ED) Additional Instructions: Rest Increase fluids Use inhaler as needed Follow-up with primary care provider to discuss chronic cough and chest congestion Proceed to the emergency room if symptoms worsen Patient Language: Ukrainian Prescriptions: New albuterol sulfate [Ventolin HFA] 90 mcg/actuation HFA aerosol inhaler 1 inh inhalation QID PRN (Reason: shortness of breath or wheezing) Qty: 6.7 0RF No Action benzonatate 100 mg capsule 100 mg PO BID PRN (Reason: cough) Qty: 14 0RF doxycycline monohydrate 100 mg tablet 100 mg PO BID 7 Days Qty: 14 0RF methylprednisolone [Medrol (Yousuf)] 4 mg tablets,dose pack See Rx Instructions .ROUTE .COMPLEX Qty: 21 0RF Rx Instructions: orally per package directions finasteride 5 mg tablet 5 mg PO DAILY vitamin B complex [B Complex-Vitamin B12] Tablet 1 tablet PO DAILY cholecalciferol (vitamin D3) [Vitamin D3] 25 mcg (1,000 unit) capsule 25 mcg PO DAILY clopidogrel 75 mg tablet 75 mg PO DAILY magnesium 250 mg tablet 250 mg PO DAILY efinaconazole 10 % solution with applicator 1 applic topical DAILY 336 Days Qty: 8 0RF lisinopril 10 mg tablet See Rx Instructions .ROUTE .COMPLEX Qty: 90 0RF Dose Instruction: TAKE 1 TABLET BY MOUTH EVERY DAY Rx Instructions: TAKE 1 TABLET BY MOUTH EVERY DAY atorvastatin 40 mg tablet 40 mg PO DAILY Qty: 90 1RF Follow-up/Referrals: Tereza Burgos APRN [Primary Care Provider] - Time of Disposition: 13:07
== END 2025-02-01 13:09 | disposition home or self-care (01) ==
PROVIDERS: Emergency Provider Nurse Practitioner Family; PCP Nurse Practitioner Family
DX: R05.3 Chronic cough (principal); R09.89 Other specified symptoms and signs involving the circulatory and respiratory systems; Z87.891 Personal history of nicotine dependence; I10 Essential (primary) hypertension; E78.00 Pure hypercholesterolemia, unspecified; I71.9 Aortic aneurysm of unspecified site, without rupture
CPT/HCPCS: 71046; 99213; G0463

== ENCOUNTER 2025-03-08 08:26 | Emergency (ER) | payer MEDICARE, SELFPAY ==
--- NOTE | ~2025-03-08 | XR_ITS ---
EXAMINATION: XR chest 2V, XR chest 1V DATE: 03/08/2025 INDICATION: 10 days of cough TECHNIQUE: 1. PA and lateral views of the chest were obtained. 2. Repeat AP view of the chest was obtained with nipple markers. COMPARISON: Chest radiograph dated 02/01/2025 FINDINGS: Subtle reticulonodular opacities in the left midlung zone suspicious for pneumonia. Unchanged nodular opacity projecting over the right diaphragm frontal projection without evident correlate on the late ral projection and which cholelithiasis with nipple markers on the follow-up radiograph consistent wi th a nipple shadow. No pleural effusion or pneumothorax. Mild to moderate thoracic spondylosis with c hronic appearing mild anterior wedging of a few mid and lower thoracic vertebral bodies. Likely cherelle cystectomy clips the upper abdomen. IMPRESSION: 1. Likely pneumonia in the left midlung zone. Reviewed, dictated and finalized at location A. IMPRESSION: 1. Likely pneumonia in the left midlung zone.
--- OUTSIDE RECORDS SUMMARY | 2025-03-08 08:28 | XMS_ITS | Encounter Summary ---
Author Organization [facility] Facility Care Team Providers Care Rubber Mixer Name Role Phone No, Physician Primary Care Provider [phone] Jase Day MD Primary Care Provider [phone] Curtis Hebert MD Primary Care Provider [phone] Jase Day MD Primary Care Provider [phone] Tereza Burgos NP Primary Care Provider [phone] Encounter Details Date Type Department Care Team (Latest Contact Info) Description 10/03/2018 Orders Only [facility] ProviderRonn MD [address] [place] [id number] Social History Tobacco Use Types Packs/Day Years Used Date Smoking Tobacco: Never Assessed Sex and Gender Information Value Date Recorded Sex Assigned at Not on file Legal Sex Male 8:56 AM REWINDER Gender Identity Male 10/04/2021 7:54 PM REWINDER Sexual Orientation Straight 10/04/2021 7: 54 PM REWINDER documented as of this encounter Plan of Treatment Not on file documented as of this encounter Procedures Procedure Name Priority Date/Time Associated Diagnosis Comments PROCEDURE - RESULT 10/03/2018 12 :00 AM REWINDER PROCEDURE - RESULT 09/27/2018 12 :00 AM REWINDER documented in this encounter Results * PROCEDURE - RESULT (10/03/2018 12:00 AM REWINDER) Narrative 10/03/2018 12:00 AM REWINDER Ordered by an unspecified provider. Historical Provider Final Res ult * PROCEDURE - RESULT (09/27/2018 12:00 AM REWINDER) Narrative 09/27/2018 12:00 AM REWINDER Ordered by an unspecified provider. Historical Provider Final Res ult documented in this encounter Visit Diagnoses Not on filedocumented in this encounter Care Teams Rubber Mixer Relationship Specialty Start Date End Date No, Physician PCP - General 10/03/18 10/31/18 Jase Day MD [address] [place] [address] PCP - General Family Medicine 11/01/18 03/11/20 Curtis Hebert MD [address] [facility] [address] [address] PCP - General 03/12/20 05/13/20 Jase Day MD [address] [place] [address] PCP - General Family Medicine 05/14/20 10/26/22 Tereza Burgos NP [address] [place] [address] PCP - General Family Medicine 11/20/24 documented as of this encounter
--- OUTSIDE RECORDS SUMMARY | 2025-03-08 08:28 | XMS_ITS | Encounter Summary ---
Author Organization [facility] Facility Care Team Providers Care Inhalation Therapy Aide Name Role Phone Jase Day MD Primary Care Provider [phone] Curtis Hebert MD Primary Care Provider [phone] Jase Day MD Primary Care Provider [phone] Tereza Burgos NP Primary Care Provider [phone] Encounter Details Date Type Department Care Team (Latest Contact Info) Description 01/02/2019 Orders Only [facility] ProviderRonn MD [address] [place], [place] [id number] Social History Tobacco Use Types Packs/Day Years Used Date Smoking Tobacco: Former Smokeless Tobacco: Never Alcohol Use Standard Drinks/Week Comments No 0 (1 standard drink = 0.6 oz pur e alcohol) Sex and Gender Information Value Date Recorded Sex Assigned at Not on file Legal Sex Male 8:56 AM DIRECTOR FINANCIAL ANALYSIS Gender Identity Male 10/04/2021 7:54 PM DIRECTOR FINANCIAL ANALYSIS Sexual Orientation Straight 10/04/2021 7: 54 PM DIRECTOR FINANCIAL ANALYSIS documented as of this encounter Plan of Treatment Not on file documented as of this encounter Procedures Procedure Name Priority Date/Time Associated Diagnosis Comments PROCEDURE - RESULT 12/14/2018 12 :00 AM DIRECTOR FINANCIAL ANALYSIS documented in this encounter Results * PROCEDURE - RESULT (12/14/2018 12:00 AM DIRECTOR FINANCIAL ANALYSIS) Narrative 12/14/2018 12:00 AM DIRECTOR FINANCIAL ANALYSIS Ordered by an unspecified provider. Historical Provider Final Res ult documented in this encounter Visit Diagnoses Not on filedocumented in this encounter Care Teams Inhalation Therapy Aide Relationship Specialty Start Date End Date Jase Day MD [address] [place] [address] PCP - General Family Medicine 11/01/18 03/11/20 Curtis Hebert MD [address] [facility] [address] [address] PCP - General 03/12/20 05/13/20 Jase Day MD [address] [place] [address] PCP - General Family Medicine 05/14/20 10/26/22 Tereza Burgos NP [address] [place] [address] PCP - General Family Medicine 11/20/24 documented as of this encounter
--- OUTSIDE RECORDS SUMMARY | 2025-03-08 08:28 | XMS_ITS | Clinical Summary ---
Author Organization [facility] Address [address] [place] [address] Care Team Providers Care Residence Director Name Role Phone Jase Day MD Primary Care Provider [phone] Source Comments [facility],non-owned Affiliates and Associated Physician Practices is amultiple site organization consisting of ambulatory clinics and hospital sitesin [place], [place], [place] and [place]. This disclosure is being madepursuant to the Care Everywhere program and may not contain all information available regarding this patient. Last updated 18.[facility] Allergies No known active allergies Medications * [...] Comments Blood Pressure 107/63 10/29/2018 12:02 PM SLUICE TENDER Pulse 63 10/29/2018 12:02 PM SLUICE TENDER Temperature 36.7 C (98.1 F) 10/29/2018 12:02 PM SLUICE TENDER Respiratory Rate 16 10/29/2018 12:02 PM SLUICE TENDER Oxygen Saturation 100% 10/29/2018 12:02 PM SLUICE TENDER Inhaled Oxygen Concentration 21% 10/29/2018 9 :05 AM SLUICE TENDER Weight 87.5 kg (193 lb) 10/29/2018 9:05 AM SLUICE TENDER Height 177.8 cm (5' 10 ) 10/29/2018 9:05 AM SLUICE TENDER Body Mass Index 27.69 10/29/2018 9:05 AM SLUICE TENDER Plan of Treatment Health Maintenance Due Date Last Done Comments DTAP/TDAP/TD VACCINES (1 - Tdap) 1959 PNEUMOCOCCAL [...] to complete this topic Insurance MEDICARE MEDICARE [facility] Advance Directives * Full Code (Latest Code Status on File) Date Activated Date Inactivated Comments 10/29/2018 12:07 PM 10/29/2018 1:14 PM * Full Code Date Activated Date Inactivated Comments 10/26/2018 11:59 AM 10/29/2018 12:07 PM Care Teams Residence Director Relationship Specialty Start Date End Date Jase Day MD PCP - General 05/31/18
--- OUTSIDE RECORDS SUMMARY | 2025-03-08 08:28 | XMS_ITS | Referral Summary ---
Author Organization [facility] [place] [address] Address [address] [place] [address] Care Team Providers Care Financial Manager Name Role Phone Tereza Burgos NP Primary Care Provider [phone] Allergies Active Allergy Reactions Criticality Noted Date [...] mouth daily 90 tablet 3 5 Active Active Problems Problem Noted Date Diagnosed [...] 09/2017 Assessment & Plan (11/20/2024 2:28 PM BLUEPRINT READER): Status post right fem-pop bypass graft 2018 denies any symptoms of claudication or ischemic rest pain. Continue aspirin and Plavix. Follow-up in 1 year with a lower extremity arterial duplex Sensorineural hearing loss, bilateral 11/02/2023 Other hyperlipidemia 09/06/2019 Assessment & Plan (10/05/2021 4:16 PM BLUEPRINT READER): Impression: Chronic stable hyperlipidemia, controlled medications. Plan: Medications reviewed, no changes made. Continue statin therapy as per primary care provider. Assessment & Plan (03/26/2021 1:31 PM CDT): Impression: Patient states his cholesterol is stable. Plan: Continue cholesterol management as per primary care provider. Hypertension 09/06/2019 Assessment & Plan (10/05/2021 4:16 PM BLUEPRINT READER): Impression: Chronic stable hypertension, controlled medications. Blood [...] 2017 Assessment & Plan (11/20/2024 2:29 PM BLUEPRINT READER): Aortobifemoral bypass graft for AAA 2009. Endograft remains patent per current duplex. Continue aspirin Plavix and statin therapy and follow up in 1 year for routine surveillance with aortic duplex Assessment & Plan (10/28/2022 10:43 AM BLUEPRINT READER): Patient is status post aortobifemoral bypass for AAA repair in 2009. He continues to do well after surgery. Denies any abdominal side or back pain no claudication with ambulation. Duplex today 10/27/2022 shows the graft is patent. Plan: Return in 1 year for routine surveillance with an aortic duplex. Assessment & Plan (10/05/2021 4:15 PM BLUEPRINT READER): Impression: Patient is status post aortobifemoral bypass graft in 2009. Bypass graft is patent is seen on abdominal arterial duplex with an elevated velocity of 165 to the left anastomosis. Patient has palpable bilateral femoral pulses and distal pulses. Plan: Recommend ongoing risk factor modifications. Patient to follow-up in 1 year for re-evaluation with abdominal arterial duplex. 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 Patient has bilateral biphasic waveforms distally. He denies any claudication or rest pain. The graft is patent on duplex 10/27/2022. Both lower extremities are warm with palpable distal pulses. Return in 1 year for routine surveillance with a lower extremity arterial duplex. Assessment & Plan (10/05/2021 4:16 PM BLUEPRINT READER): Impression: Patient is status post right femoral [...] on file Legal Sex Male 8:56 AM BLUEPRINT READER Gender Identity Male 10/04/2021 7:54 PM BLUEPRINT READER Sexual Orientation Straight 10/04/2021 7: 54 PM BLUEPRINT READER Last Filed Vital Signs Vital Sign Reading Time Taken Comments Blood Pressure 159/74 11/20/2024 9:32 AM BLUEPRINT READER Pulse 74 11/20/2024 9:32 AM BLUEPRINT READER Temperature 36.8 C (98.3 F) 09/05/2019 2:28 PM BLUEPRINT READER Respiratory Rate - - Oxygen Saturation 95% 03/05/2024 10:30 AM CDT Inhaled Oxygen Concentration - - Weight 81.6 kg (180 lb) 11/20/2024 9:32 AM BLUEPRINT READER Height 177.8 cm (5' 10 ) 11/20/2024 9:32 AM BLUEPRINT READER Body Mass Index 25.83 11/20/2024 9:32 AM BLUEPRINT READER Plan of Treatment Not on file Insurance [facility] MEDICARE [facility] MEDICARE SUPPLEMENT Advance Directives For more information, please contact: [phone] Documents on File Type Date Recorded Patient Caster Operator Expl anation ADVANCE DIRECTIVE 09/26/2011 12:00 AM AUREA ING WILL ADVANCE DIRECTIVE 09/26/2011 12:00 AM [facility] OF RADIOLOGY CLERK FINANCIAL/MEDICAL Care Teams Financial Manager Relationship Specialty Start Date End Date Tereza Burgos NP [address] [place] [address] PCP - General Family Medicine 11/20/24
--- OUTSIDE RECORDS SUMMARY | 2025-03-08 08:28 | XMS_ITS | Continuity of Care Document ---
Author Organization [facility] Address [address] [place] [address] Phone Care Team Providers Care Recruitment Manager Name Role Phone Tay Pete DO Unavailable Unavailable Advance Directives Directive Yes / No Effective Date File Name No Information Encounters Encounter Description Practice Location Reason(s) For Visit Diagnoses Date Provider Providers Copied on Encounter [facility], [address], [place], [place], [id number], tel:[phone] [facility] No Information Yanci Alfredo. [address] [place], [address], [place]. tel: [phone] Family History Family Member Type Diagnosis Age At Onset No Information Payers Payer name Insurance type Covered constitution party ID Authoriza tion(s) Medicare [place] MB [id number] Social History Type Description Quantity Date Captured [...]
--- OUTSIDE RECORDS SUMMARY | 2025-03-08 08:28 | XMS_ITS | Encounter Summary ---
Author Organization [facility] Care Team Providers Care Sound Person Name Role Phone Jase Day MD Primary Care Provider [phone] Curtis Hebert MD Primary Care Provider [phone] Jase Day MD Primary Care Provider [phone] Tereza Burgos NP Primary Care Provider [phone] Encounter Details Date Type Department Care Team (Latest Contact Info) Description 11/13/2018 Orders Only [facility] CLINCONV ProviderRonn MD [address] [place], [place] [id number] Social History Tobacco Use Types Packs/Day Years Used Date Smoking Tobacco: Former Smokeless Tobacco: Never Alcohol Use Standard Drinks/Week Comments No 0 (1 standard drink = 0.6 oz pur e alcohol) Sex and Gender Information Value Date Recorded Sex Assigned at Not on file Legal Sex Male 8:56 AM CONSUMER LENDING MANAGER Gender Identity Male 10/04/2021 7:54 PM CONSUMER LENDING MANAGER Sexual Orientation Straight 10/04/2021 7: 54 PM CONSUMER LENDING MANAGER documented as of this encounter Plan of Treatment Not on file documented as of this encounter Procedures Procedure Name Priority Date/Time Associated Diagnosis Comments PROCEDURE - RESULT 11/29/2018 12 :00 AM CONSUMER LENDING MANAGER documented in this encounter Results * PROCEDURE - RESULT (11/29/2018 12:00 AM CONSUMER LENDING MANAGER) Narrative 11/29/2018 12:00 AM CONSUMER LENDING MANAGER Ordered by an unspecified provider. Historical Provider Final Res ult documented in this encounter Visit Diagnoses Not on filedocumented in this encounter Care Teams Sound Person Relationship Specialty Start Date End Date Jase Day MD [address] [place] [address] PCP - General Family Medicine 11/01/18 03/11/20 Curtis Hebert MD [address] [facility] [address] [address] PCP - General 03/12/20 05/13/20 Jase Day MD [address] [place] [address] PCP - General Family Medicine 05/14/20 10/26/22 Tereza Burgos NP [address] [place] [address] PCP - General Family Medicine 11/20/24 documented as of this encounter
--- OUTSIDE RECORDS SUMMARY | 2025-03-08 08:28 | XMS_ITS | Clinical Summary ---
Author Organization [facility] [place] [address] Address [address] [place] [address] Care Team Providers Care Rn Clinical Resource Name Role Phone Tereza Burgos NP Primary Care Provider [phone] Allergies Active Allergy Reactions Criticality Noted Date [...] 09/2017 Assessment & Plan (11/20/2024 2:28 PM ACCESSIONER): Status post right fem-pop bypass graft 2018 denies any symptoms of claudication or ischemic rest pain. Continue aspirin and Plavix. Follow-up in 1 year with a lower extremity arterial duplex Sensorineural hearing loss, bilateral 11/02/2023 Other hyperlipidemia 09/06/2019 Assessment & Plan (10/05/2021 4:16 PM ACCESSIONER): Impression: Chronic stable hyperlipidemia, controlled medications. Plan: Medications reviewed, no changes made. Continue statin therapy as per primary care provider. Assessment & Plan (03/26/2021 1:31 PM CDT): Impression: Patient states his cholesterol is stable. Plan: Continue cholesterol management as per primary care provider. Hypertension 09/06/2019 Assessment & Plan (10/05/2021 4:16 PM ACCESSIONER): Impression: Chronic stable hypertension, controlled medications. Blood [...] 2017 Assessment & Plan (11/20/2024 2:29 PM ACCESSIONER): Aortobifemoral bypass graft for AAA 2009. Endograft remains patent per current duplex. Continue aspirin Plavix and statin therapy and follow up in 1 year for routine surveillance with aortic duplex Assessment & Plan (10/28/2022 10:43 AM ACCESSIONER): Patient is status post aortobifemoral bypass for AAA repair in 2009. He continues to do well after surgery. Denies any abdominal side or back pain no claudication with ambulation. Duplex today 10/27/2022 shows the graft is patent. Plan: Return in 1 year for routine surveillance with an aortic duplex. Assessment & Plan (10/05/2021 4:15 PM ACCESSIONER): Impression: Patient is status post aortobifemoral bypass graft in 2009. Bypass graft is patent is seen on abdominal arterial duplex with an elevated velocity of 165 to the left anastomosis. Patient has palpable bilateral femoral pulses and distal pulses. Plan: Recommend ongoing risk factor modifications. Patient to follow-up in 1 year for re-evaluation with abdominal arterial duplex. 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 Patient has bilateral biphasic waveforms distally. He denies any claudication or rest pain. The graft is patent on duplex 10/27/2022. Both lower extremities are warm with palpable distal pulses. Return in 1 year for routine surveillance with a lower extremity arterial duplex. Assessment & Plan (10/05/2021 4:16 PM ACCESSIONER): Impression: Patient is status post right femoral [...] (abdominal aortic aneurysm) without rupture Atherosclerosis of torres martinez ar marialuisa of both lower extremities with [...] on file Legal Sex Male 8:56 AM ACCESSIONER Gender Identity Male 10/04/2021 7:54 PM ACCESSIONER Sexual Orientation Straight 10/04/2021 7: 54 PM ACCESSIONER Obstetrics History Last Filed Vital Signs Vital Sign Reading Time Taken Comments Blood Pressure 159/74 11/20/2024 9:32 AM ACCESSIONER Pulse 74 11/20/2024 9:32 AM ACCESSIONER Temperature 36.8 C (98.3 F) 09/05/2019 2:28 PM ACCESSIONER Respiratory Rate - - Oxygen Saturation 95% 03/05/2024 10:30 AM CDT Inhaled Oxygen Concentration - - Weight 81.6 kg (180 lb) 11/20/2024 9:32 AM ACCESSIONER Height 177.8 cm (5' 10 ) 11/20/2024 9:32 AM ACCESSIONER Body Mass Index 25.83 11/20/2024 9:32 AM ACCESSIONER Plan of Treatment Health Maintenance Due Date Last Done Comments Depression Screening 1938 Fall Risk Assessment 1940 Hepatitis B Screening 02/21[birth year]1956 Zoster Vaccine (1 of 2) 02/21/1988 Well Visit 65+ 2003 Influenza Vaccine (Season Ended) 2025 08/06/2018, 06/22/2018, 07/25/2017, Additional history exists DTaP/Tdap/Td Vaccine (2 - Td or Tdap) 08/01/2027 08/01/2017 Pneumococcal vaccine 65+ Completed 018, 08/01/2017, 05/19/2011, Additional history exists Insurance MEDICARE [facility] MEDICARE [facility] MEDICARE [employer] MEDICARE SUPPLEMENT Advance Directives For more information, please contact: [phone] Documents on File Type Date Recorded Patient Hand Tire Trimmer Expl anation ADVANCE DIRECTIVE 09/26/2011 12:00 AM AUREA ING WILL ADVANCE DIRECTIVE 09/26/2011 12:00 AM [facility] OF BINGO CHECKER FINANCIAL/MEDICAL Care Teams Rn Clinical Resource Relationship Specialty Start Date End Date Tereza Burgos NP [address] [place], [place] [id number] PCP - General Family Medicine 11/20/24
--- OUTSIDE RECORDS SUMMARY | 2025-03-08 08:30 | XMS_ITS | Continuity of Care Document ---
Author Organization [facility] Address [address] [place] [address] Phone Care Team Providers Care Dried Fruit Washer Name Role Phone Tay Pete DO Unavailable Unavailable Advance Directives Directive Yes / No Effective Date File Name No Information Encounters Encounter Description Practice Location Reason(s) For Visit Diagnoses Date Provider Providers Copied on Encounter [facility], [address], [place], [place], [id number], tel:[phone] [facility] No Information Yanci Alfredo. [address] [place], [address], [place]. tel: [phone] Family History Family Member Type Diagnosis Age At Onset No Information Payers Payer name Insurance type Covered republican ID Authoriza tion(s) [place] [id number] Social History Type Description Quantity Date Captured [...]
--- NOTE | 2025-03-08 08:32 | ED_ITS ---
HPI - URI/Sore Throat General Chief Complaint: Upper Respiratory Infection Stated Complaint: coughing Time Seen by Provider: 03/08/25 08:41 Source: patient, RN notes reviewed and old records reviewed Mode of arrival: ambulatory Limitations: no limitations History of Present Illness HPI Narrative: A 76-year-old male presents to the [facility] with 10 day history of not feeling well, productive, mild shortness of breath Patient denies any chest pain except when he coughs. Patient denies fevers, abdominal pain. Related Data Home Medications ?Medication ?Instructions ?Recorded ?Confirmed ?Last Taken ?Type clopidogrel 75 mg tablet 75 mg PO DAILY 12/07/21 02/12/25 Unknown History magnesium 250 mg tablet 250 mg PO DAILY 12/07/21 02/12/25 Unknown History cholecalciferol (vitamin D3) 25 25 mcg PO DAILY 10/06/22 02/12/25 Unknown History mcg (1,000 unit) capsule (Vitamin D3) finasteride 5 mg tablet 5 mg PO DAILY 10/06/22 02/12/25 Unknown History vitamin B complex (B 1 tablet PO DAILY 10/06/22 02/12/25 Unknown History Complex-Vitamin B12 tablet) Allergies Allergy/AdvReac Type Severity Reaction Status Date / Time No Known Allergies Allergy Verified 03/08/25 08:36 Review of Systems Review of Systems: All systems reviewed & are unremarkable except as noted in HPI and below Constitutional: Constitutional: Reports no additional constitutional complaints ENT: Reports system reviewed and no additional complaints, except as documented Cardiovascular: Cardiovascular: Reports no additional cardiovascular complaints, Denies chest pain and Denies dyspnea Respiratory: Respiratory: Reports as per HPI, Denies chest congestion, Reports cough, Reports excessive phlegm production, Reports pain with cough and Reports dyspnea Musculoskeletal: Musculoskeletal: Reports no additional musculoskeletal complaints Integumentary/Breasts: Skin/Breast: Reports system reviewed and no additional complaints, except as docu [facility] Past Medical History Medical History (Updated 03/08/25 @ 17:46 by Moriah Quiroz APRN) Aortic stenosis senior care use of drug History of stress test Aorta aneurysm Hernia Hypertension High cholesterol Surgical History Surgical History H/O vein stripping Family History Family History Mother Heart disease Social History Social History Smoking status: Former smoker Alcohol intake: never Substance use: never Substance use type: does not use Lack of Transportation: No Lack of Food: Never True Current Housing: I Have Housing Concerned About Future Housing: No Difficulty Paying Gas/Electric Bills: No Difficulty Paying for Meds: No Currently Unemployed: No Comments At the time of my signature, I reviewed and agree with the nursing past medical, surgical, social, and family history. There is no relevant family history pertinent to the patient complaint. Exam Const: General: cooperative, no acute distress, well developed, alert, ill appearing chronically, tired appearing, uncomfortable and well nourished Nutritional Appearance: well nourished Orientation/consciousness: patient oriented x3 Limitations: no limitations HENMT: Head: normal to inspection Eyes: General: appearance normal, both eyes and all related structures Alignment and Position: alignment normal Neck: Neck: normal visual inspection, full ROM, no lymphadenopathy and no meningeal signs Chest: Chest palpation & inspection: normal inspection of the chest Resp: Effort & Inspection: normal respiratory effort and able to speak in complete sentences Auscultation: crackles on the left, no rales, no rhonchi, no wheezes and diminished lung sounds on the right in the lower lung calderón Cardio: Rate: regular rate Skin: General skin exam: normal color and no rashes or lesions noted Neuro: General: patient oriented x3, gait normal, moves all extremities and no meningeal signs Cognition (Neuro): normal cognition Speech: normal speech Gait exam (Neuro): Normal gait present Extrem: General: normal to inspection, full ROM, capillary refill normal and normal gait Psych: Appearance: grossly normal and well kempt Mental Status: mental status grossly normal Speech and movement: Normal speech and movement present and Clear speech present Affect: normal affect Attitude: cooperative Course Course Level of Care: Express Care Visit Vital Signs Vital signs: Vital Signs Temperature 98.4 F 03/08/25 08:34 Pulse Rate 72 03/08/25 08:34 Respiratory Rate 18 03/08/25 08:34 Blood Pressure 132/65 03/08/25 08:34 Pulse Oximetry 100 03/08/25 08:34 Oxygen Delivery Room Air 03/08/25 08:34 Temperature 98.4 F 03/08/25 08:34 Pulse Rate 72 03/08/25 08:34 Respiratory Rate 18 03/08/25 08:34 Blood Pressure 132/65 03/08/25 08:34 Pulse Oximetry 100 03/08/25 08:34 Oxygen Delivery Room Air 03/08/25 08:34 Reviewed MDM - URI/Sore Throat MDM Narrative Medical decision making narrative: Patient sitting in exam room. Patient is nontoxic, vitals are stable. Patient presents with a productive cough, x-ray shows probability up pneumonia, will treat with antibiotics Patient appropriate for outpatient treatment with strict signs and symptoms to go to the ER which he verbalized understanding Discharge instructions reviewed with patient, as well as provided in writing per nursing staff. The instructions also include specific and strict return/GO TO THE ER as well as f/u information. All questions have been answered, and the patient deny any further questions with discharge and discharge plan. Some parts of this dictation were generated by voice recognition software and may contain typographical and/or grammatical inaccuracies. Differential Diagnosis Differential diagnosis: Likely upper respiratory infection, sinusitis, viral infection, bronchitis and other (Pneumonia, flu, COVID, CHF) Lab Data Labs: Lab Results 03/08/25 Range/Units 08:41 POC Influenza A Ag Negative (Negative) POC Influenza B Ag Negative (Negative) POC SARS CoV-2 Ag Negative (Negative) Reviewed Imaging Data Radiologist's impression: EXAMINATION: XR chest 2V, XR chest 1V DATE: 03/08/2025 INDICATION: 10 days of cough TECHNIQUE: 1. PA and lateral views of the chest were obtained. 2. Repeat AP view of the chest was obtained with nipple markers. COMPARISON: Chest radiograph dated 02/01/2025 FINDINGS: Subtle reticulonodular opacities in the left midlung zone suspicious for pneumonia. Unchanged nodular opacity projecting over the right diaphragm frontal projection without evident correlate on the lateral projection and which cholelithiasis with nipple markers on the follow-up radiograph consistent with a nipple shadow. No pleural effusion or pneumothorax. Mild to moderate thoracic spondylosis with chronic appearing mild anterior wedging of a few mid and lower thoracic vertebral bodies. Likely cholecystectomy clips the upper abdomen. IMPRESSION: 1. Likely pneumonia in the left midlung zone. ECG Data EKG #1: Attestation: I personally reviewed and interpreted this ECG as follows: ECG completion date: 03/08/25 ECG completion time: 08:57 Prior ECG tracings: not available for review Interpretation: Sinus rhythm, nonspecific ST and T-wave abnormality, borderline EKG. No ST elevation or depression is noted. Ventricle rate of 66, AK interval 199, QRS duration 95. Critical Care Time Critical Care Time Critical Care Time: No Discharge Plan Discharge Clinical Impression: Pneumonia Qualifiers: Pneumonia type: due to unspecified organism Laterality: left Lung location: unspecified part of lung Qualified Code(s): J18.9 - Pneumonia, unspecified organism Patient Disposition: Home Condition: Stable Instructions: Antibiotic Form, Pneumonia (ED) Additional Instructions: Your chest x-ray shows a pneumonia. You have been prescribed antibiotics. Please take the antibiotics as prescribed Is extremely important you follow-up with your primary care provider Please remember to take 10 deep breaths every hour while awake. If your symptoms get worse, develops chest pain, severe shortness of breath ple ase go directly to the emergency room for further evaluation, testing and treatment Patient Language: Nepalese Prescriptions: New azithromycin 250 mg tablet See Rx Instructions PO .COMPLEX Qty: 6 0RF Rx Instructions: take 500 mg today (day 1), then 250 mg for 4 days (days 2-5) amoxicillin-pot clavulanate 875-125 mg tablet 1 tablet PO Q12H Qty: 20 0RF No Action finasteride 5 mg tablet 5 mg PO DAILY vitamin B complex [B Complex-Vitamin B12] Tablet 1 tablet PO DAILY cholecalciferol (vitamin D3) [Vitamin D3] 25 mcg (1,000 unit) capsule 25 mcg PO DAILY tadalafil [Cialis] 5 mg tablet 10 mg PO DAILY PRN (Reason: sexual activity) Qty: 30 0RF Rx Instructions: administer approximately 30min before sexual activity; do not use more than 1 dose per 24hrs clopidogrel 75 mg tablet 75 mg PO DAILY magnesium 250 mg tablet 250 mg PO DAILY efinaconazole 10 % solution with applicator 1 applic topical DAILY 336 Days Qty: 8 0RF lisinopril 10 mg tablet See Rx Instructions .ROUTE .COMPLEX Qty: 90 0RF Dose Instruction: TAKE 1 TABLET BY MOUTH EVERY DAY Rx Instructions: TAKE 1 TABLET BY MOUTH EVERY DAY atorvastatin 40 mg tablet 40 mg PO DAILY Qty: 90 1RF fluticasone propionate 50 mcg/actuation spray,suspension See Rx Instructions .ROUTE .COMPLEX Qty: 48 0RF Dose Instruction: SHAKE LIQUID AND USE 2 SPRAYS IN EACH NOSTRIL DAILY Rx Instructions: SHAKE LIQUID AND USE 2 SPRAYS IN EACH NOSTRIL DAILY Follow-up/Referrals: Tereza Burgos APRN [Primary Care Provider] - 1 Week ([facility] care follow up Pneumonia ) Time of Disposition: 09:58
[2025-03-08 08:34] VITALS: BP 132/65; PULSE 72; RESP 18; TEMP 36.9; O2SAT 100
--- NOTE | 2025-03-08 08:56 | ECG_ITS ---
Test Date: 2025-03-08 08:57:49 Measurements Intervals [place] Rate: 66 P: 68 WV: 199 QRS: 17 QRSD: 95 T: 3 QT: 435 QTc: 457 Interpretive Statements SINUS RHYTHM NONSPECIFIC ST & T-WAVE ABNORMALITY No previous ECG available for comparison Electronically Signed On 03-08-2025 17:14:56 CDT by Les Sultana M.D.
[2025-03-08 09:05] LABS: EDCOVIDSCREEN Negative (Negative); EDINFLUASCREEN Negative (Negative); EDINFLUBSCREEN Negative (Negative)
== END 2025-03-08 10:04 | disposition home or self-care (01) ==
PROVIDERS: Emergency Provider Nurse Practitioner; PCP Nurse Practitioner Family
DX: J18.9 Pneumonia, unspecified organism (principal); Z20.822 Contact with and (suspected) exposure to COVID-19; I35.0 Nonrheumatic aortic (valve) stenosis; I10 Essential (primary) hypertension; E78.00 Pure hypercholesterolemia, unspecified; Z87.891 Personal history of nicotine dependence
CPT/HCPCS: 71045; 71046; 87426; 87804; 93005; 99213; G0463

== ENCOUNTER 2025-10-14 11:03 | Emergency (ER) | payer MEDICARE, SELFPAY ==
--- NOTE | ~2025-10-14 | XR_ITS ---
XR toe 1st LT min 2V 10/14/2025 12:32 Indication: Left first toe redness and pain Procedure: 4 views left first toe Comparison: No prior studies for comparison. 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 Mild soft tissue swelling. No fracture, subluxation or dislocation. No erosive changes. No foreign bodies. Impression: 1: No acute bone or joint abnormality. Reviewed, dictated and finalized at location O. [employer]ESS [employer]PER[employer]OR Impression: 1: No acute bone or joint abnormality.
[2025-10-14 11:18] VITALS: BP 151/90; PULSE 80; RESP 18; TEMP 36.1; O2SAT 100
--- OUTSIDE RECORDS SUMMARY | 2025-10-14 11:47 | XMS_ITS | Encounter Summary ---
Author Organization [facility] Facility Care Team Providers Care International Marketing Executive Name Role Phone No, Physician Primary Care Provider [phone] Jase Day MD Primary Care Provider [phone] Curtis Hebert MD Primary Care Provider [phone] Jase Day MD Primary Care Provider [phone] Tereza Burgos NP Primary Care Provider [phone] Encounter Details Date Type Department Care Team (Latest Contact Info) Description 10/03/2018 Orders Only [facility] CLINCONV ProviderRonn MD [address] [place] [id number] Social History Tobacco Use Types Packs/Day Years Used Date Smoking Tobacco: Never Assessed Sex and Gender Information Value Date Recorded Sex Assigned at Not on file Legal Sex Male 8:56 AM HEAD OF ICT Gender Identity Male 10/04/2021 7:54 PM HEAD OF ICT Sexual Orientation Straight 10/04/2021 7: 54 PM HEAD OF ICT documented as of this encounter Plan of Treatment Not on file documented as of this encounter Procedures Procedure Name Priority Date/Time Associated Diagnosis Comments PROCEDURE - RESULT 10/03/2018 12 :00 AM HEAD OF ICT PROCEDURE - RESULT 09/27/2018 12 :00 AM HEAD OF ICT documented in this encounter Results * PROCEDURE - RESULT (10/03/2018 12:00 AM HEAD OF ICT) Narrative 10/03/2018 12:00 AM HEAD OF ICT Ordered by an unspecified provider. Historical Provider Final Res ult * PROCEDURE - RESULT (09/27/2018 12:00 AM HEAD OF ICT) Narrative 09/27/2018 12:00 AM HEAD OF ICT Ordered by an unspecified provider. Historical Provider Final Res ult documented in this encounter Visit Diagnoses Not on filedocumented in this encounter Care Teams International Marketing Executive Relationship Specialty Start Date End Date No, Physician PCP - General 10/03/18 10/31/18 Jase Day MD [address] [place] [address] PCP - General Family Medicine 11/01/18 03/11/20 Curtis Hebert MD [address] [facility] [address] [address] PCP - General 03/12/20 05/13/20 Jase Day MD [address] [place] [address] PCP - General Family Medicine 05/14/20 10/26/22 Tereza Burgos NP [address] [place] [address] PCP - General Family Medicine 11/20/24 documented as of this encounter
--- OUTSIDE RECORDS SUMMARY | 2025-10-14 11:47 | XMS_ITS | Encounter Summary ---
Author Organization [facility] Facility Care Team Providers Care Flitch Hanger Name Role Phone Jase Day MD Primary Care Provider [phone] Curtis Hebert MD Primary Care Provider [phone] Jase Day MD Primary Care Provider [phone] Tereza Burgos NP Primary Care Provider [phone] Encounter Details Date Type Department Care Team (Latest Contact Info) Description 01/02/2019 Orders Only [facility] CLINCONV ProviderRonn MD [address] [place], [place] [id number] Social History Tobacco Use Types Packs/Day Years Used Date Smoking Tobacco: Former Smokeless Tobacco: Never Alcohol Use Standard Drinks/Week Comments No 0 (1 standard drink = 0.6 oz pur e alcohol) Sex and Gender Information Value Date Recorded Sex Assigned at Not on file Legal Sex Male 8:56 AM MALT HOUSE SUPERVISOR Gender Identity Male 10/04/2021 7:54 PM MALT HOUSE SUPERVISOR Sexual Orientation Straight 10/04/2021 7: 54 PM MALT HOUSE SUPERVISOR documented as of this encounter Plan of Treatment Not on file documented as of this encounter Procedures Procedure Name Priority Date/Time Associated Diagnosis Comments PROCEDURE - RESULT 12/14/2018 12 :00 AM MALT HOUSE SUPERVISOR documented in this encounter Results * PROCEDURE - RESULT (12/14/2018 12:00 AM MALT HOUSE SUPERVISOR) Narrative 12/14/2018 12:00 AM MALT HOUSE SUPERVISOR Ordered by an unspecified provider. Historical Provider Final Res ult documented in this encounter Visit Diagnoses Not on filedocumented in this encounter Care Teams Flitch Hanger Relationship Specialty Start Date End Date Jase Day MD [address] [place] [address] PCP - General Family Medicine 11/01/18 03/11/20 Curtis Hebert MD [address] [facility] [address] [address] PCP - General 03/12/20 05/13/20 Jase Day MD [address] [place] [address] PCP - General Family Medicine 05/14/20 10/26/22 Tereza Burgos NP [address] [place] [address] PCP - General Family Medicine 11/20/24 documented as of this encounter
--- OUTSIDE RECORDS SUMMARY | 2025-10-14 11:47 | XMS_ITS | Clinical Summary ---
Author Organization [facility] [address] Address [address] [place] [address] Care Team Providers Care Artificial Pearl Maker Name Role Phone Tereza Burgos NP Primary Care Provider [phone] Allergies Active Allergy Reactions Criticality Noted Date [...] 09/2017 Assessment & Plan (11/20/2024 2:28 PM ACCESS RN): Status post right fem-pop bypass graft 2018 denies any symptoms of claudication or ischemic rest pain. Continue aspirin and Plavix. Follow-up in 1 year with a lower extremity arterial duplex Sensorineural hearing loss, bilateral 11/02/2023 Other hyperlipidemia 09/06/2019 Assessment & Plan (10/05/2021 4:16 PM ACCESS RN): Impression: Chronic stable hyperlipidemia, controlled medications. Plan: Medications reviewed, no changes made. Continue statin therapy as per primary care provider. Assessment & Plan (03/26/2021 1:31 PM CDT): Impression: Patient states his cholesterol is stable. Plan: Continue cholesterol management as per primary care provider. Hypertension 09/06/2019 Assessment & Plan (10/05/2021 4:16 PM ACCESS RN): Impression: Chronic stable hypertension, controlled medications. Blood [...] 2017 Assessment & Plan (11/20/2024 2:29 PM ACCESS RN): Aortobifemoral bypass graft for AAA 2009. Endograft remains patent per current duplex. Continue aspirin Plavix and statin therapy and follow up in 1 year for routine surveillance with aortic duplex Assessment & Plan (10/28/2022 10:43 AM ACCESS RN): Patient is status post aortobifemoral bypass for AAA repair in 2009. He continues to do well after surgery. Denies any abdominal side or back pain no claudication with ambulation. Duplex today 10/27/2022 shows the graft is patent. Plan: Return in 1 year for routine surveillance with an aortic duplex. Assessment & Plan (10/05/2021 4:15 PM ACCESS RN): Impression: Patient is status post aortobifemoral bypass graft in 2009. Bypass graft is patent is seen on abdominal arterial duplex with an elevated velocity of 165 to the left anastomosis. Patient has palpable bilateral femoral pulses and distal pulses. Plan: Recommend ongoing risk factor modifications. Patient to follow-up in 1 year for re-evaluation with abdominal arterial duplex. 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 Patient has bilateral biphasic waveforms distally. He denies any claudication or rest pain. The graft is patent on duplex 10/27/2022. Both lower extremities are warm with palpable distal pulses. Return in 1 year for routine surveillance with a lower extremity arterial duplex. Assessment & Plan (10/05/2021 4:16 PM ACCESS RN): Impression: Patient is status post right femoral [...] (abdominal aortic aneurysm) without rupture Atherosclerosis of [place] of both lower extremities with [...] on file Legal Sex Male 8:56 AM ACCESS RN Gender Identity Male 10/04/2021 7:54 PM ACCESS RN Sexual Orientation Straight 10/04/2021 7: 54 PM ACCESS RN Last Filed Vital Signs Vital Sign Reading Time Taken Comments Blood Pressure 159/74 11/20/2024 9:32 AM ACCESS RN Pulse 74 11/20/2024 9:32 AM ACCESS RN Temperature 36.8 C (98.3 F) 09/05/2019 2:28 PM ACCESS RN Respiratory Rate - - Oxygen Saturation 95% 03/05/2024 10:30 AM CDT Inhaled Oxygen Concentration - - Weight 81.6 kg (180 lb) 11/20/2024 9:32 AM ACCESS RN Height 177.8 cm (5' 10) 11/20/2024 9:32 AM ACCESS RN Body Mass Index 25.83 11/20/2024 9:32 AM ACCESS RN Plan of Treatment Health Maintenance Due Date Last Done Comments Depression Screening 1938 Fall Risk Assessment 1940 Hepatitis B Screening 02/21/1956 Zoster Vaccine (1 of 2) 02/21/1988 Well Visit 65+ 2003 Influenza Vaccine (#1) 2025 8, 06/22/2018, 07/25/2017, Additional history exists DTaP/Tdap/Td Vaccine (2 - Td or Tdap) 08/01/2027 08/01/2017 Pneumococcal vaccine 65+ Completed 018, 08/01/2017, 05/19/2011, Additional history exists Insurance MEDICARE [facility] MEDICARE [facility] MEDICARE BLUE CROSS MEDICARE SUPPLEMENT Member Subscriber Plan / Payer ( fective 2012-Present) Name:Lev Dodson Sr. Relation to Subscriber:Self Name:Lev Dodson . Payer ID:[id number] Type:COMMERCIAL Address: [facility] [id number] [place] [id number] Advance Directives For more information, please contact: [phone] Documents on File Type Date Recorded Patient Animal Nurse Expl anation ADVANCE DIRECTIVE 09/26/2011 12:00 AM A[employer]A [employer]G WILL ADVANCE DIRECTIVE 09/26/2011 12:00 AM [facility] SENIOR MANUFACTURING SUPERVISOR FINANCIAL/MEDICAL Care Teams Artificial Pearl Maker Relationship Specialty Start Date End Date Tereza Burgos NP [address] [place], [place] [id number] PCP - General Family Medicine 11/20/24
--- OUTSIDE RECORDS SUMMARY | 2025-10-14 11:47 | XMS_ITS | Clinical Summary ---
Author Organization [facility] Address [address] [place] [address] Care Team Providers Care Information Systems Director Name Role Phone Jase Day MD Primary Care Provider [phone] Social History Tobacco Use Types Packs/Day Years [...] 75+ series) 2013 COVID-19 Vaccine ( season) 2025 09/02/2022, 03/22/2022, 08/30/2021, Additional history exists Influenza Adult (#1) 2025 08/24/2022, 08/30/2021, 08/08/2020, Additional history exists Pneumococcal Vaccine: 50+ Years Completed 09/10/2018, 05/19/2011, 08/08/2005 Hepatitis A Vaccines Aged Out No long er eligible based on patient's age to complete this topic Meningococcal B Vaccine Aged Out No l onger eligible based on patient's age to complete this topic Meningococcal Vaccine Aged Out No so dominik eligible based on patient's age to complete this topic RSV Immunizations Under 20 Months Aged Out No longer eligible based on patient's age to complete this topic Insurance MEDICARE [facility] Care Teams Information Systems Director Relationship Specialty Start Date End Date Jase Day MD [address] [place] [address] PCP - General FAMILY PRACTICE 09/21/22
--- OUTSIDE RECORDS SUMMARY | 2025-10-14 11:47 | XMS_ITS | Encounter Summary ---
Author Organization [facility] Facility Care Team Providers Care Nurse Esthetician Name Role Phone Jase Day MD Primary Care Provider [phone] Curtis Hebert MD Primary Care Provider [phone] Jase Day MD Primary Care Provider [phone] Tereza Burgos NP Primary Care Provider [phone] Encounter Details Date Type Department Care Team (Latest Contact Info) Description 11/13/2018 Orders Only [facility] CLINCONV ProviderRonn MD [address] [place], [place] [id number] Social History Tobacco Use Types Packs/Day Years Used Date Smoking Tobacco: Former Smokeless Tobacco: Never Alcohol Use Standard Drinks/Week Comments No 0 (1 standard drink = 0.6 oz pur e alcohol) Sex and Gender Information Value Date Recorded Sex Assigned at Not on file Legal Sex Male 8:56 AM DATA COORDINATOR Gender Identity Male 10/04/2021 7:54 PM DATA COORDINATOR Sexual Orientation Straight 10/04/2021 7: 54 PM DATA COORDINATOR documented as of this encounter Plan of Treatment Not on file documented as of this encounter Procedures Procedure Name Priority Date/Time Associated Diagnosis Comments PROCEDURE - RESULT 11/29/2018 12 :00 AM DATA COORDINATOR documented in this encounter Results * PROCEDURE - RESULT (11/29/2018 12:00 AM DATA COORDINATOR) Narrative 11/29/2018 12:00 AM DATA COORDINATOR Ordered by an unspecified provider. Historical Provider Final Res ult documented in this encounter Visit Diagnoses Not on filedocumented in this encounter Care Teams Nurse Esthetician Relationship Specialty Start Date End Date Jase Day MD [address] [place] [address] PCP - General Family Medicine 11/01/18 03/11/20 Curtis Hebert MD [address] [facility] [address] [address] PCP - General 03/12/20 05/13/20 Jase Day MD [address] [place] [address] PCP - General Family Medicine 05/14/20 10/26/22 Tereza Burgos NP [address] [place] [address] PCP - General Family Medicine 11/20/24 documented as of this encounter
--- NOTE | 2025-10-14 12:40 | ED.GENADULT ---
HPI - General Adult General Chief complaint: Skin/Abscess/Foreign Body Stated complaint: L Toe Source: patient Mode of arrival: ambulatory Limitations: no limitations History of Present Illness HPI narrative: patient presents for evaluation of redness to the left great toe for several months. He cannot identify any precipitating cause or injury. He reports a throbbing sensation the affected digit. He cannot provide me with a numerical rating to his symptoms. He reports numbness in both feet but states that is not new. Denies a history of gout or diabetes. He states he had a fungal infection in the nailplate of the affected digit. He applied James's and states the nailplate withe the fungal infection fell off and the new nailplate beneath appeared normal. Related Data Home Medications ?Medication ?Instructions ?Recorded ?Confirmed ?Last Taken ?Type clopidogrel 75 mg tablet 75 mg PO DAILY 12/07/21 08/14/25 Unknown History magnesium 250 mg tablet 250 mg PO DAILY 12/07/21 08/14/25 Unknown History cholecalciferol (vitamin D3) 25 25 mcg PO DAILY 10/06/22 08/14/25 Unknown History mcg (1,000 unit) capsule (Vitamin D3) finasteride 5 mg tablet 5 mg PO DAILY 10/06/22 08/14/25 Unknown History vitamin B complex (B 1 tablet PO DAILY 10/06/22 08/14/25 Unknown History Complex-Vitamin B12 tablet) sildenafil 50 mg tablet (Viagra) 50 mg PO DAILY PRN 08/14/25 08/14/25 Unknown History Allergies Allergy/AdvReac Type Severity Reaction Status Date / Time No Known Allergies Allergy Verified 10/14/25 11:42 Review of Systems Review of Systems: CONSTITUTIONAL: Denies fever, chills, or sweats. EYES: Denies visual changes, redness, or discharge. ENT: Denies rhinorrhea, congestion, sore throat, or otalgia. CARDIOVASCULAR: Denies chest pain, palpitations, or edema. RESPIRATORY: Denies cough or dyspnea. GASTROINTESTINAL: Denies abdominal pain, nausea, vomiting, or diarrhea. GENITOURINARY: Denies dysuria or hematuria. SKIN: Reports redness to the left great toe MUSCULOSKELETAL: Reports pain in left great toe. NEUROLOGIC: ReportsDenies headache, numbness, dizziness, or weakness. PSYCHIATRIC: Denies anxiety or depression. [facility] Past Medical History Medical History Aortic stenosis longterm use of drug History of stress test Aorta aneurysm Hernia Hypertension High cholesterol Surgical History Surgical History H/O vein stripping Family History Family History Mother Heart disease Social History Social History Smoking status: Former smoker Alcohol intake: never Substance use: never Substance use type: does not use Lack of Transportation: No Lack of Food: Never True Current Housing: I Have Housing Concerned About Future Housing: No Difficulty Paying Gas/Electric Bills: No Difficulty Paying for Meds: No Currently Unemployed: No Exam Narrative: GENERAL: Well-appearing, well-nourished, and in no acute distress. HEAD: Normocephalic, atraumatic. EYES: PERRLA and EOMI. ENT: Nares clear, no rhinorrhea or epistaxis. Mucous membranes moist. Oropharynx without tonsillar hypertrophy exudate or other lesions. Bilateral TMs pearly manning nonbulging NECK: Supple. No adenopathy or masses. No carotid bruits or JVD CHEST: Clear to auscultation. No respiratory distress. No wheezes rales or rhonchi HEART: Regular rate and rhythm. No murmur heard. Normal peripheral pulses. ABDOMEN: Soft, nontender, nondistended, normal active bowel sounds. EXTREMITIES: Normal range of motion. No edema. SKIN: Nailplate of left great toe is ingrown. There is erythema to the distal phalanx of the left great toe. Warm, dry, no rash. NEURO: No focal deficits. Alert and oriented x3. PSYCH: Normal mood and affect. Course Course Emergency Course: This is an 85-year-old male who presented for evaluation of left great toe redness and pain. He has an ingrown nail plate. X-ray negative for fracture retained foreign body. I recommended he follow-up with podiatry for nail trimming. I will place him on some cephalexin. He has intact circulation as cap refill less than three seconds. He should go to the ER for worsening symptoms. Pt in agreement with plan of care. Level of Care: Express Care Visit Vital Signs Vital signs: Vital Signs Temperature 36.1 C L 10/14/25 11:18 Pulse Rate 80 10/14/25 11:18 Respiratory Rate 18 10/14/25 11:18 Blood Pressure 151/90 H 10/14/25 11:18 Pulse Oximetry 100 10/14/25 11:18 Oxygen Delivery Room Air 10/14/25 11:18 Temperature 36.1 C L 10/14/25 11:18 Pulse Rate 80 10/14/25 11:18 Respiratory Rate 18 10/14/25 11:18 Blood Pressure 151/90 H 10/14/25 11:18 Pulse Oximetry 100 10/14/25 11:18 Oxygen Delivery Room Air 10/14/25 11:18 MDM Differential Diagnosis Differential Diagnosis: Retained foreign body versus fracture versus cellulitis versus ingrown nail versus paronychia versus onychomycosis versus other Imaging Data Radiologist's impression: ITS Impressions Toe X-Ray 10/14/25 12:42 Impression: 1: No acute bone or joint abnormality. Discharge Plan Discharge Clinical Impression: Ingrown nail of great toe of left foot Patient Disposition: Home Condition: Stable Instructions: Antibiotic Form, Ingrown Nail (ED) Additional Instructions: PLEASE CALL PODIATRY TO HAVE THEM TRIM YOUR NAILS Patient Language: [place] Prescriptions: New cephalexin 500 mg capsule 500 mg PO Q6H Qty: 40 0RF No Action finasteride 5 mg tablet 5 mg PO DAILY vitamin B complex [B Complex-Vitamin B12] Tablet 1 tablet PO DAILY cholecalciferol (vitamin D3) [Vitamin D3] 25 mcg (1,000 unit) capsule 25 mcg PO DAILY sildenafil [Viagra] 50 mg tablet 50 mg PO DAILY PRN Rx Instructions: administer 30 minutes to 4 hours before activity clopidogrel 75 mg tablet 75 mg PO DAILY magnesium 250 mg tablet 250 mg PO DAILY fluticasone propionate 50 mcg/actuation spray,suspension See Rx Instructions .ROUTE .COMPLEX Qty: 48 0RF Dose Instruction: SHAKE LIQUID AND USE 2 SPRAYS IN EACH NOSTRIL DAILY Rx Instructions: SHAKE LIQUID AND USE 2 SPRAYS IN EACH NOSTRIL DAILY atorvastatin 40 mg tablet See Rx Instructions .ROUTE .COMPLEX Qty: 90 0RF Dose Instruction: TAKE 1 TABLET BY MOUTH DAILY Rx Instructions: TAKE 1 TABLET BY MOUTH DAILY lisinopril 10 mg tablet See Rx Instructions .ROUTE .COMPLEX Qty: 90 1RF Dose Instruction: TAKE 1 TABLET BY MOUTH EVERY DAY Rx Instructions: TAKE 1 TABLET BY MOUTH EVERY DAY Follow-up/Referrals: Susan,Radha Joe DPM [Non-Staff, Podiatry] Tereza Burgos APRN [Primary Care Provider, Internal Medicine] Time of Disposition: 12:52
== END 2025-10-14 12:56 | disposition home or self-care (01) ==
PROVIDERS: Emergency Provider Nurse Practitioner; PCP Nurse Practitioner Family
DX: L60.0 Ingrowing nail (principal); I10 Essential (primary) hypertension; E78.00 Pure hypercholesterolemia, unspecified; I35.0 Nonrheumatic aortic (valve) stenosis
CPT/HCPCS: 73660; 99213; G0463